=== PATIENT | female | born 1980 | race Caucasian/White ===

== ENCOUNTER 2018-06-30 10:41 | Emergency (ER) | payer MEDICAID, SELFPAY ==
[2018-06-30 11:11] VITALS: BP 121/50; PULSE 70; RESP 16; TEMP 36.7; O2SAT 99
--- NOTE | 2018-06-30 12:00 | W.ED.GENAD ---
Discharge Plan Disposition Patient Disposition: HOME Condition: Good Discharge Details Chief Complaint: Sorethroat Clinical Impression: Pharyngitis, Sinusitis Primary Care Provider: Janelle Baig ED Provider: Abdifatah Hawkins Home Meds and New Rx's Prescriptions: No Action multivitamin [Multi-Day] 1 EACH tablet 1 ea PO DAILY RF: 0 fluoxetine 20 MG capsule 20 mg PO DAILY Qty: 90 RF: 3 Buspirone HCl 5 MG tablet 5 mg PO Q8H PRN Qty: 15 RF: 0 Discharge Instructions Instructions: Pharyngitis (ED), Sinusitis (ED) Stand Alone Forms: Work Release Referrals: [facility] Emergency Dept. [Outside] - Return if symptoms worsen Discharge Data Discharge Date/Time-TO BE ENTERED AT DEPARTURE: 06/30/18 12:07 Medical Decision Making Apprised her of negative strep. Advised to take a couple days off while culture is pending. Note provided. Return to ED if symptoms worsen otherwise with pcp. Lab Data Lab results reviewed: Yes I reviewed the patient's lab results. Lab results narrative: negative strep. HPI General Mode of arrival: ambulatory. Date/Time Provider Initiated Documentation: 06/30/18 11:52. Limitations to Documentation: no limitations. Information obtained by: patient. History of Present Illness 37 year old F presents to the emergency department with the chief complaint of sore throat and bilateral ear pressure/pain, described as mild, Quality is described as aching, Patient started experiencing this day(s) and it has been constant. No relieving factors improve symptom(s), No exacerbating factors reported . Patient notes no other symptoms.. 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 Denies cough, cp, sob, or fever. Related Data Home Medications Medication Instructions Recorded Confirmed multivitamin [Multi-Day] 1 ea PO DAILY 11/17/12 06/30/18 fluoxetine 20 mg PO DAILY #90 tab-cap 02/14/18 06/30/18 Previous Rx's Medication Instructions Recorded fluoxetine 20 mg PO DAILY #90 tab-cap 02/14/18 Allergies Allergy/AdvReac Type Severity Reaction Status Date / Time amoxicillin Allergy Intermediate Skin Rash Unverified 06/30/18 11:14 General Stated Complaint: Sorethroat SANTINO: 4 Review of Systems Constitutional Denies headache(s) Eyes Reports system reviewed and no additional complaints, except as docu ENT Reports otalgia, Denies headache(s), Denies hearing loss, Reports sinus pressure and Reports sore throat Cardiovascular Reports system reviewed and no additional complaints, except as docu Respiratory Reports system reviewed and no additional complaints, except as docu Gastrointestinal Reports system reviewed and no additional complaints, except as docu Neurologic Denies headache(s) PFSH Family History Sister Brain tumor Social History Smoking/Tobacco Use Status: Current every day Surgical History Extraction of cataract (12/29/15) Exam Const General: cooperative, no acute distress and well groomed Orientation: alert, awake and oriented x3 HENMT Head: normal to inspection Ears: hearing grossly normal bilaterally, external ears normal and TM's normal bilaterally General nose exam: external nose normal Face and sinus: normal facial exam Mouth: oral mucosae normal, tongue normal, oropharynx normal and no drooling Teeth and gingiva: dentition normal Throat: posterior oropharynx normal Eyes General: appearance normal, both eyes and all related structures Neck Neck: normal visual inspection, full ROM and no lymphadenopathy Resp Effort & Inspection: normal respiratory effort Auscultation: clear to auscultation bilaterally Cardio Jugular venous pressure: no JVD Rate: regular rate Rhythm: regular rhythm Course Vital Signs Temperature 36.7 C 06/30/18 11:11 Pulse 70 06/30/18 11:11 Respiratory Rate 16 06/30/18 11:11 Blood Pressure 121/50 L 06/30/18 11:11 Pulse Oximetry 99 06/30/18 11:11 Temperature 36.7 C 06/30/18 11:11 Temperature Source Temporal Artery Scan 06/30/18 11:11 Pulse 70 06/30/18 11:11 Respiratory Rate 16 06/30/18 11:11 Respiratory Effort Non-Labored 06/30/18 11:13 Blood Pressure 121/50 L 06/30/18 11:11 Blood Pressure Position Sitting 06/30/18 11:11 Pulse Oximetry 99 06/30/18 11:11 Oxygen Delivery Method Room Air 06/30/18 11:11 Oxygen Flow Rate 0 06/30/18 11:11 Pain Level 8 06/30/18 11:11 Lab/Test Results Lab/Test Results: 06/30/18 11:16 Pharynx Streptococcus Screen (DAVID) - Pending POC Strep Test-ELIZABETH(Rapid) Start: 06/30/18 11:09 Freq: .Rapid Strep Test Status: Active Protocol: Document 06/30/18 11:15 SGL (Rec: 06/30/18 11:16 SGL [id number]) Strep test-ELIZABETH(Rapid)-POC POC-Strep test-ELIZABETH (Rapid) Negative POC-Strep test-ELIZABETH (Rapid) Negative
--- NOTE | 2018-06-30 12:03 | ED.GENADUL_ITS ---
Discharge Plan Disposition Patient Disposition: HOME Condition: Good Discharge Details Chief Complaint: Sorethroat Clinical Impression: Pharyngitis, Sinusitis Primary Care Provider: Janelle Baig ED Provider: Abdifatah Hawkins Home Meds and New Rx's Prescriptions: No Action multivitamin [Multi-Day] 1 EACH tablet 1 ea PO DAILY RF: 0 fluoxetine 20 MG capsule 20 mg PO DAILY Qty: 90 RF: 3 Buspirone HCl 5 MG tablet 5 mg PO Q8H PRN Qty: 15 RF: 0 Discharge Instructions Instructions: Pharyngitis (ED), Sinusitis (ED) Stand Alone Forms: Work Release Referrals: [facility] Emergency Dept. [Outside] - Return if symptoms worsen Discharge Data Discharge Date/Time-TO BE ENTERED AT DEPARTURE: 06/30/18 12:07 Medical Decision Making Apprised her of negative strep. Advised to take a couple days off while culture is pending. Note provided. Return to ED if symptoms worsen otherwise with pcp. Lab Data Lab results reviewed: Yes I reviewed the patient's lab results. Lab results narrative: negative strep. HPI General Mode of arrival: ambulatory . Date/Time Provider Initiated Documentation: 06/30/18 11:52 . Limitations to Documentation: no limitations . Information obtained by: patient . History of Present Illness 37 year old F presents to the emergency department with the chief complaint of sore throat and bilateral ear pressure/pain, described as mild, Quality is described as aching, Patient started experiencing this day(s) and it has been constant. No relieving factors improve symptom(s), No exacerbating factors reported . Patient notes no other symptoms.. 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 Denies cough, cp, sob, or fever. Related Data Home Medications Medication Instructions Recorded Confirmed multivitamin [Multi-Day] 1 ea PO DAILY 11/17/12 06/30/18 fluoxetine 20 mg PO DAILY #90 tab-cap 02/14/18 06/30/18 Previous Rx's Medication Instructions Recorded fluoxetine 20 mg PO DAILY #90 tab-cap 02/14/18 Allergies Allergy/AdvReac Type Severity Reaction Status Date / Time amoxicillin Allergy Intermediate Skin Rash Unverified 06/30/18 11:14 General Stated Complaint: Sorethroat SANTINO: 4 Review of Systems Constitutional Denies headache(s) Eyes Reports system reviewed and no additional complaints, except as docu ENT Reports otalgia, Denies headache(s), Denies hearing loss, Reports sinus pressure and Reports sore throat Cardiovascular Reports system reviewed and no additional complaints, except as docu Respiratory Reports system reviewed and no additional complaints, except as docu Gastrointestinal Reports system reviewed and no additional complaints, except as docu Neurologic Denies headache(s) PFSH Family History Sister Brain tumor Social History Smoking/Tobacco Use Status: Current every day Surgical History Extraction of cataract (12/29/15) Exam Const General: cooperative, no acute distress and well groomed Orientation: alert, awake and oriented x3 HENMT Head: normal to inspection Ears: hearing grossly normal bilaterally, external ears normal and TM's normal bilaterally General nose exam: external nose normal Face and sinus: normal facial exam Mouth: oral mucosae normal, tongue normal, oropharynx normal and no drooling Teeth and gingiva: dentition normal Throat: posterior oropharynx normal Eyes General: appearance normal, both eyes and all related structures Neck Neck: normal visual inspection, full ROM and no lymphadenopathy Resp Effort & Inspection: normal respiratory effort Auscultation: clear to auscultation bilaterally Cardio Jugular venous pressure: no JVD Rate: regular rate Rhythm: regular rhythm Course Vital Signs Temperature 36.7 C 06/30/18 11:11 Pulse 70 06/30/18 11:11 Respiratory Rate 16 06/30/18 11:11 Blood Pressure 121/50 L 06/30/18 11:11 Pulse Oximetry 99 06/30/18 11:11 Temperature 36.7 C 06/30/18 11:11 Temperature Source Temporal Artery Scan 06/30/18 11:11 Pulse 70 06/30/18 11:11 Respiratory Rate 16 06/30/18 11:11 Respiratory Effort Non-Labored 06/30/18 11:13 Blood Pressure 121/50 L 06/30/18 11:11 Blood Pressure Position Sitting 06/30/18 11:11 Pulse Oximetry 99 06/30/18 11:11 Oxygen Delivery Method Room Air 06/30/18 11:11 Oxygen Flow Rate 0 06/30/18 11:11 Pain Level 8 06/30/18 11:11 Lab/Test Results Lab/Test Results: 06/30/18 11:16 Pharynx Streptococcus Screen (DAVID) - Pending POC Strep Test-ELIZABETH(Rapid) Start: 06/30/18 11: 09 Freq: .Rapid Strep Test Status: Active Protocol: Document 06/30/18 11:15 SGL (Rec: 06/30/18 11:16 SGL [id number]) Strep test-ELIZABETH(Rapid)-POC POC-Strep test-ELIZABETH (Rapid) Negative POC-Strep test-ELIZABETH (Rapid) Negative
== END 2018-06-30 12:07 | disposition home or self-care (01) ==
LOC: ER 12:33
PROVIDERS: Emergency Provider Nurse Practitioner Family; PCP Family Medicine
DX: J02.9 Acute pharyngitis, unspecified (principal); J01.90 Acute sinusitis, unspecified; F17.210 Nicotine dependence, cigarettes, uncomplicated
CPT/HCPCS: 87880; 87081

== ENCOUNTER 2018-07-14 15:43 | Emergency (ER) | payer MEDICAID, SELFPAY ==
[2018-07-14 16:15] VITALS: BP 127/75; PULSE 74; RESP 16; TEMP 36.7; O2SAT 100
--- NOTE | 2018-07-14 17:07 | W.ED.GENAD ---
Discharge Plan Disposition Patient Disposition: HOME Condition: Good Discharge Details Chief Complaint: RespSymp Clinical Impression: Viral respiratory illness Primary Care Provider: Janelle Baig ED Provider: Raimundo Camp Home Meds and New Rx's Prescriptions: New benzonatate 200 mg capsule 200 mg PO TID PRN (Reason: cough) Qty: 30 RF: 0 Continue multivitamin [Multi-Day] 1 EACH tablet 1 ea PO DAILY RF: 0 fluoxetine 20 MG capsule 20 mg PO DAILY Qty: 90 RF: 3 Buspirone HCl 5 MG tablet 5 mg PO Q8H PRN Qty: 15 RF: 0 Discharge Instructions Instructions: Viral Syndrome (ED), Cold Symptoms (ED) Additional Instructions: Feel free to return the emergency department for any new or significant worsening of your symptoms otherwise take medications as prescribed and follow-up with your primary care provider if not improving over the next week. For nasal congestion it is recommended that you use an [id number] nasal decongestant. Stay well-hydrated and get plenty of rest during illness. Referrals: Janelle Baig MD, [place] [Primary Care Provider] - (As needed for reassessment or if not improving in the next week) Discharge Data Discharge Date/Time-TO BE ENTERED AT DEPARTURE: 07/14/18 17:17 Medical Decision Making Patient presenting to the emergency department for continued cough. She states that she has had a cold now for 2 weeks and has had some nasal congestion and lingering cough. She states that intermittently gets better and worse and seems to be worse at night and her biggest complaint is that she has not been able to sleep well due to coughing through the night. Physical exam is unremarkable except for mild tonsillary erythema otherwise no worrisome physical exam finding including patient having clear lung sounds in all mccurdy, no lymphadenopathy, patient well in appearance. I feel that patient still has post viral cough and just needs symptomatic medications at this point. Patient even denies fever chills I do not think that antibiotics are needed or warranted at this time. Patient was encouraged to use symptomatic medication as prescribed, which includes Tessalon Perles, and to follow-up with primary care if not improving over the next week. After discussion of diagnosis and plan of care patient has no further needs, questions, or concerns and states clear understanding to return to the emergency department for any worsening symptoms. HPI General Mode of arrival: ambulatory. Date/Time Provider Initiated Documentation: 07/14/18 16:26. Limitations to Documentation: no limitations. Information obtained by: patient and RN notes reviewed. History of Present Illness 37 year old F presents to the emergency department with the chief complaint of Cough, described as moderate, with intensity rated at 6. Quality is described as aching, and is localized to the chest. Patient started experiencing this week(s) (2) and it has been constant. No relieving factors improve symptom(s), No exacerbating factors reported . Patient did receive the following treatments prior to arrival, other (Robitussin DM) Related Data Home Medications Medication Instructions Recorded Confirmed multivitamin [Multi-Day] 1 ea PO DAILY 11/17/12 07/14/18 fluoxetine 20 mg PO DAILY #90 tab-cap 02/14/18 07/14/18 benzonatate 200 mg PO TID PRN #30 cap 07/14/18 Previous Rx's Medication Instructions Recorded fluoxetine 20 mg PO DAILY #90 tab-cap 02/14/18 benzonatate 200 mg PO TID PRN #30 cap 07/14/18 Allergies Allergy/AdvReac Type Severity Reaction Status Date / Time amoxicillin Allergy Intermediate Skin Rash Verified 07/14/18 16:20 General Stated Complaint: RespSymp SANTINO: 3 Review of Systems Constitutional Denies chills, Reports difficulty sleeping (Due to coughing), Denies fatigue, Denies fever(s) and Denies malaise ENT Denies otalgia, Reports nasal congestion, Reports sinus pressure and Reports sore throat Cardiovascular Denies dyspnea Respiratory Reports cough, Denies dyspnea, Denies stridor and Denies wheezing Musculoskeletal Denies joint swelling Integumentary/Breasts Denies rash Endocrine Denies fatigue Allergic/Immunologic Denies wheezing PFSH Family History Sister Brain tumor Social History Smoking/Tobacco Use Status: Current every day Surgical History Extraction of cataract (12/29/15) Exam Const General: cooperative, comfortable and no acute distress Orientation: alert, awake and oriented x3 HENMT Head: normal to inspection Ears: hearing grossly normal bilaterally and TM's normal bilaterally Face and sinus: normal facial exam Mouth: oral mucosae normal Throat: abnormal tonsil bilaterally erythema (mild) Eyes General: appearance normal, both eyes and all related structures Conjunctivae: conjunctivae normal Sclera: sclerae normal Neck Neck: normal visual inspection, full ROM, no lymphadenopathy, meningismus present and no JVD Resp Effort & Inspection: normal respiratory effort, able to speak in complete sentences, no audible wheezes, cough Quality of cough: actively coughing and not labored Auscultation: clear to auscultation bilaterally Cardio Rate: regular rate Rhythm: regular rhythm Heart Sounds: S1 normal and S2 normal Skin General skin exam: no rashes or lesions noted and dry skin Rashes: no rashes Neuro General: alert, awake, oriented x3 and gait normal Course Vital Signs Temperature 36.7 C 07/14/18 16:15 Pulse 74 07/14/18 16:15 Respiratory Rate 16 07/14/18 16:15 Blood Pressure 127/75 07/14/18 16:15 Pulse Oximetry 100 07/14/18 16:15 Temperature 36.7 C 07/14/18 16:15 Temperature Source Skin 07/14/18 16:15 Pulse 74 07/14/18 16:15 Respiratory Rate 16 07/14/18 16:15 Blood Pressure 127/75 07/14/18 16:15 Blood Pressure Position Sitting 07/14/18 16:15 Pulse Oximetry 100 07/14/18 16:15 Oxygen Delivery Method Room Air 07/14/18 16:15 Oxygen Flow Rate 0 07/14/18 16:15 Pain Level 0 07/14/18 16:15
--- NOTE | 2018-07-14 17:12 | ED.GENADUL_ITS ---
Discharge Plan Disposition Patient Disposition: HOME Condition: Good Discharge Details Chief Complaint: RespSymp Clinical Impression: Viral respiratory illness Primary Care Provider: Janelle Baig ED Provider: Raimundo Camp Home Meds and New Rx's Prescriptions: New benzonatate 200 mg capsule 200 mg PO TID PRN (Reason: cough) Qty: 30 RF: 0 Continue multivitamin [Multi-Day] 1 EACH tablet 1 ea PO DAILY RF: 0 fluoxetine 20 MG capsule 20 mg PO DAILY Qty: 90 RF: 3 Buspirone HCl 5 MG tablet 5 mg PO Q8H PRN Qty: 15 RF: 0 Discharge Instructions Instructions: Viral Syndrome (ED), Cold Symptoms (ED) Additional Instructions: Feel free to return the emergency department for any new or significant worsening of your symptoms otherwise take medications as prescribed and follow- up with your primary care provider if not improving over the next week. For nasal congestion it is recommended that you use an [id number] nasal decongestant. Stay well-hydrated and get plenty of rest during illness. Referrals: Janelle aBig MD, [place] [Primary Care Provider] - (As needed for reassessment or if not improving in the next week) Discharge Data Discharge Date/Time-TO BE ENTERED AT DEPARTURE: 07/14/18 17:17 Medical Decision Making Patient presenting to the emergency department for continued cough. She states that she has had a cold now for 2 weeks and has had some nasal congestion and lingering cough. She states that intermittently gets better and worse and seems to be worse at night and her biggest complaint is that she has not been able to sleep well due to coughing through the night. Physical exam is unremarkable except for mild tonsillary erythema otherwise no worrisome physical exam finding including patient having clear lung sounds in all mccurdy, no lymphadenopathy, patient well in appearance. I feel that patient still has post viral cough and just needs symptomatic medications at this point. Patient even denies fever chills I do not think that antibiotics are needed or warranted at this time. Patient was encouraged to use symptomatic medication as prescribed, which includes Tessalon Perles, and to follow-up with primary care if not improving over the next week. After discussion of diagnosis and plan of care patient has no further needs, questions, or concerns and states clear understanding to return to the emergency department for any worsening symptoms. HPI General Mode of arrival: ambulatory . Date/Time Provider Initiated Documentation: 07/14/18 16:26 . Limitations to Documentation: no limitations . Information obtained by: patient and RN notes reviewed . History of Present Illness 37 year old F presents to the emergency department with the chief complaint of Cough, described as moderate, with intensity rated at 6. Quality is described as aching, and is localized to the chest. Patient started experiencing this week(s) (2) and it has been constant. No relieving factors improve symptom(s), No exacerbating factors reported . Patient did receive the following treatments prior to arrival, other (Robitussin DM) Related Data Home Medications Medication Instructions Recorded Confirmed multivitamin [Multi-Day] 1 ea PO DAILY 11/17/12 07/14/18 fluoxetine 20 mg PO DAILY #90 tab-cap 02/14/18 07/14/18 benzonatate 200 mg PO TID PRN #30 cap 07/14/18 Previous Rx's Medication Instructions Recorded fluoxetine 20 mg PO DAILY #90 tab-cap 02/14/18 benzonatate 200 mg PO TID PRN #30 cap 07/14/18 Allergies Allergy/AdvReac Type Severity Reaction Status Date / Time amoxicillin Allergy Intermediate Skin Rash Verified 07/14/18 16:20 General Stated Complaint: RespSymp SANTINO: 3 Review of Systems Constitutional Denies chills, Reports difficulty sleeping (Due to coughing), Denies fatigue, Denies fever(s) and Denies malaise ENT Denies otalgia, Reports nasal congestion, Reports sinus pressure and Reports sore throat Cardiovascular Denies dyspnea Respiratory Reports cough, Denies dyspnea, Denies stridor and Denies wheezing Musculoskeletal Denies joint swelling Integumentary/Breasts Denies rash Endocrine Denies fatigue Allergic/Immunologic Denies wheezing PFSH Family History Sister Brain tumor Social History Smoking/Tobacco Use Status: Current every day Surgical History Extraction of cataract (12/29/15) Exam Const General: cooperative, comfortable and no acute distress Orientation: alert, awake and oriented x3 HENMT Head: normal to inspection Ears: hearing grossly normal bilaterally and TM's normal bilaterally Face and sinus: normal facial exam Mouth: oral mucosae normal Throat: abnormal tonsil bilaterally erythema (mild) Eyes General: appearance normal, both eyes and all related structures Conjunctivae: conjunctivae normal Sclera: sclerae normal Neck Neck: normal visual inspection, full ROM, no lymphadenopathy, meningismus present and no JVD Resp Effort & Inspection: normal respiratory effort, able to speak in complete sentences, no audible wheezes, cough Quality of cough: actively coughing and not labored Auscultation: clear to auscultation bilaterally Cardio Rate: regular rate Rhythm: regular rhythm Heart Sounds: S1 normal and S2 normal Skin General skin exam: no rashes or lesions noted and dry skin Rashes: no rashes Neuro General: alert, awake, oriented x3 and gait normal Course Vital Signs Temperature 36.7 C 07/14/18 16:15 Pulse 74 07/14/18 16:15 Respiratory Rate 16 07/14/18 16:15 Blood Pressure 127/75 07/14/18 16:15 Pulse Oximetry 100 07/14/18 16:15 Temperature 36.7 C 07/14/18 16:15 Temperature Source Skin 07/14/18 16:15 Pulse 74 07/14/18 16:15 Respiratory Rate 16 07/14/18 16:15 Blood Pressure 127/75 07/14/18 16:15 Blood Pressure Position Sitting 07/14/18 16:15 Pulse Oximetry 100 07/14/18 16:15 Oxygen Delivery Method Room Air 07/14/18 16:15 Oxygen Flow Rate 0 07/14/18 16:15 Pain Level 0 07/14/18 16:15
== END 2018-07-14 17:17 | disposition home or self-care (01) ==
PROVIDERS: Emergency Provider Nurse Practitioner Family; PCP Family Medicine
DX: J06.9 Acute upper respiratory infection, unspecified (principal); F17.210 Nicotine dependence, cigarettes, uncomplicated
CPT/HCPCS: 99283

== ENCOUNTER 2018-08-01 06:05 | Day surgery (SDC) | payer MEDICAID, SELFPAY ==
[2018-08-01 06:23] VITALS: BP 109/64; PULSE 80; RESP 16; TEMP 36.9; O2SAT 97
[2018-08-01] MEDS: Lactated Ringers 1,000 ML 80 ML IV (06:58)
--- NOTE | 2018-08-01 08:37 | PDOC.DSDIS_ITS ---
Discharge Plan Disposition Patient Disposition: HOME Condition: Good Discharge Details Reason For Visit: BILAT CTS Attending Provider: Zia Silva Primary Care Provider: Janelle Baig Home Meds and New Rx's Prescriptions: New hydrocodone-acetaminophen 5-325 mg tablet 1 tab PO Q6H PRN (Reason: pain) Qty: 7 RF: 0 Continue multivitamin [Multi-Day] 1 EACH tablet 1 ea PO DAILY RF: 0 fluoxetine 20 MG capsule 20 mg PO DAILY Qty: 90 RF: 3 Buspirone HCl 5 MG tablet 5 mg PO Q8H PRN Qty: 15 RF: 0 benzonatate 200 mg capsule 200 mg PO TID PRN (Reason: cough) Qty: 30 RF: 0 Discharge Instructions Additional Instructions: Elevate R hand above heart level as much as possible overnite tonite. Wiggle fingers R hand 10 times/hour when awake to prevent swelling. Your fingers R hand may stay numb for 24 hours due to nerve block I put in to decrease post-op pain. Remove dressings AND splint and begin to move R wrist in 48 hours. May shower or bathe and get incision wet after you remove dressings in 48 hours. Leave incision uncovered when it is dry and sealed. Use R hand as much as discomfort allows. Follow up in 's office in 10-14 days. Stand Alone Forms: [facility] Post op Instructions, Luis Rodrigues ([facility]) Referrals: Zia Silva MD [ [facility] STAFF PHYSICIAN] - (f/u in 10-14 days.) Equipment/Supplies: Splint Activity:: Activity as Tolerated Remove Dressings/Wound Care:: 48 hours Shower/Bathe:: 48 hours Diet:: As Tolerated Discharge Orders Discharge Orders: Discharge Order (Routine); Ordered 08/01/18 Ordered By: Zia Silva DS: Diagnosis Discharge Diagnosis (1) Carpal tunnel syndrome on both sides: Start date: 08/01/18 Start time: 08:36 Status: Chronic
[2018-08-01 09:15] VITALS: BP 111/45; PULSE 70; RESP 16; TEMP 36.8; O2SAT 94
--- NOTE | 2018-08-01 17:26 | ROE_ITS ---
DATE OF PROCEDURE: August 01, 2018 PREOPERATIVE DIAGNOSIS: Carpal tunnel syndrome, right. POSTOPERATIVE DIAGNOSIS: Same. PROCEDURE: Endoscopic carpal tunnel release on the right. ANESTHESIA: IV Regional. SURGEON: Zia Silva M.D. INDICATIONS: This is a 37-year-old white female with a five to six month history of pain and numbnes s in both hands in the median nerve distribution. The right is more symptomatic than the left and sh dorothy is a right hand dominant individual. She has not gotten any relief from night splinting and contin ues to experience pain when using her hands during the daytime. Because of failure of conservative t reatment to control her symptoms, carpal tunnel release was recommended. The patient wished to under go the endoscopic technique of carpal tunnel release. The risks and complications of the procedure h ave been explained to the patient in detail preoperatively. The patient wishes to have the right kisha e done first on 08/01/18 and then proceed to have the left side fixed on 08/13/18. PROCEDURE: The patient was taken to the operating room on 08/01/18. She was placed supine on the op erating table and an IV regional anesthetic was administered to the right upper extremity. Once good anesthesia was obtained, the right hand, wrist and forearm were prepped and draped free in the usual sterile fashion. A transverse incision was made in line with the proximal flexion crease of the wri st beginning at the flexor carpi radialis tendon and extending to the flexor carpi ulnaris tendon. T he incision was carried down through the subcu to the fascia. The palmaris longus tendon was present and was retracted radially. A distally-based fascial flap was created to gain access to the carpal canal. A synovial reflector was then used to free up soft tissue attachments to the undersurface of the volar carpal ligament. The Julia endoscope blade device was then advanced to the distal edge of t he volar carpal ligament. Care was taken to position the endoscope against the hook of the hamate. When the distal edge of the volar carpal ligament was clearly visualized the trigger was depressed, e levating the blade, and then the elevator blade was brought out proximally through the incision, horowitz secting the volar carpal ligament. Littler scissors were then used to perform a subcutaneous fasciot adan in a proximal direction from the incision about two inches in length. The wound was irrigated wi th saline solution. A median nerve block was performed with 0.5% Marcaine with an epinephrine soluti on and the margins of the incision were infiltrated with 0.5% Marcaine with an epinephrine solution. The skin edges were approximated with two horizontal mattress sutures of #4-0 nylon suture material. Sterile dressings were applied of Xeroform gauze, sterile gauze 4x4's, wrapped with Kerlix bandage. It was then wrapped with an Amol bandage and the right wrist was placed in a commercial cock-up wris t splint. The tourniquet was released. There was no breakthrough bleeding. The patient was dischar amy to the Day Surgery Unit in good condition. The patient was discharged home from the Day Surgery Unit when fully recovered from her IV regional a nesthesia. She was given instructions to elevate her right hand as much as possible overnight tonigh t. She is to wiggle her fingers ten times an hour to prevent swelling. In 48 hours she is to remove the dressings and splint and begin to move her right wrist. She may then shower or bathe and get he r incision wet. She can leave the incision uncovered when it's dry and sealed. She is advised that her fingers may stay numb for 24 hours due to the nerve block I put in. She was given a prescriptio n for breakthrough pain of Hydrocodone with APAP 5/325 one tablet every six hours as needed. She michael l take this for pain that is not relieved with Tylenol or ibuprofen. She will follow-up in my office in 10 to 14 days.
== END 2018-08-01 09:12 | disposition home or self-care (01) ==
PROVIDERS: PCP Family Medicine; Visit Provider Orthopaedic Surgery
PROC: 01N54ZZ Release Median Nerve, Percutaneous Endoscopic Approach (ICD-10-PCS; CPT 29848; principal; 2018-08-01 07:30)
DX: G56.01 Carpal tunnel syndrome, right upper limb (principal)
CPT/HCPCS: 29848; J1885; J2250; L3908

== ENCOUNTER 2018-08-13 11:18 | Day surgery (SDC) | payer MEDICAID, SELFPAY ==
[2018-08-13 11:35] VITALS: BP 111/69; PULSE 82; RESP 18; TEMP 37.2; O2SAT 96
[2018-08-13] MEDS: Lactated Ringers 1,000 ML 80 ML IV (12:12)
[2018-08-13] MEDS: Normal Saline Flush 10 ML SYR IV (12:12)
--- NOTE | 2018-08-13 13:29 | PDOC.DSDIS_ITS ---
Discharge Plan Disposition Patient Disposition: HOME Condition: Good Discharge Details Attending Provider: Zia Silva Primary Care Provider: Janelle Baig Home Meds and New Rx's Prescriptions: New hydrocodone-acetaminophen 5-325 mg tablet 1 tab PO Q6H PRN (Reason: pain) Qty: 7 RF: 0 Continue multivitamin [Multi-Day] 1 EACH tablet 1 ea PO DAILY RF: 0 fluoxetine 20 MG capsule 20 mg PO DAILY Qty: 90 RF: 3 Buspirone HCl 5 MG tablet 5 mg PO Q8H PRN Qty: 15 RF: 0 Discharge Instructions Additional Instructions: Elevate L hand above heart level as much as possible overnite tonite. Wiggle your fingers L hand 10 times/hour when awake to prevent swelling. Your fingers L may stay numb for 24 hours due to nerve block I put in to decrease post-op pain. Remove splint AND dressings after 48 hours and begin to move L wrist. May shower or bathe and get incision wet after you remove dressings. Leave incision uncovered when it is dry and sealed. Use L hand as much as your discomfort allows. Follow up in 's office in 10-14 days. Stand Alone Forms: DSU Post op Instructions, Luis Rodrigues (DSU) Referrals: Zia Silva MD [ [facility] STAFF PHYSICIAN] - (f/u in 10-14 days.) Equipment/Supplies: Brace Activity:: Activity as Tolerated Remove Dressings/Wound Care:: 48 hours Shower/Bathe:: 48 hours Diet:: As Tolerated Discharge Orders Discharge Orders: Discharge Order (Routine); Ordered 08/13/18 Ordered By: Zia Silva DS: Diagnosis Discharge Diagnosis (1) Carpal tunnel syndrome on both sides: Status: Chronic
[2018-08-13 13:53] VITALS: BP 96/49; PULSE 76; RESP 16; TEMP 36.9; O2SAT 97
--- NOTE | 2018-08-14 07:27 | ROE_ITS ---
REPORT OF OPERATIVE PROCEDURE DATE OF PROCEDURE August 13, 2018 PREOPERATIVE DIAGNOSIS Carpal tunnel syndrome on the left. POSTOPERATIVE DIAGNOSIS Carpal tunnel syndrome on the left. PROCEDURE Endoscopic carpal tunnel release on the left. ANESTHESIA IV regional, Davy Calero CRNA SURGEON Zia Silva M.D. INDICATIONS FOR PROCEDURE This is a 37-year-old white female with long standing carpal tunnel syndrome bilaterally. Two weeks a go, she underwent an endoscopic carpal tunnel release on the right with an excellent result. She want s to proceed with an endoscopic carpal tunnel release on the left at this time. The risks and complic ations of the procedure have been explained to her in detail preoperatively. DESCRIPTION OF PROCEDURE The patient was taken to the Operating Room on 08/13/2018. She was placed supine on the operating ta ble and an IV regional anesthetic was administered to the left upper extremity. Once good anesthesia was obtained, the left hand, wrist, and forearm were prepped and draped free in the usual sterile fa shion. A transverse incision was made in line with the proximal flexion crease of the wrist. The incision be tammy at the flexor carpi radialis and extended to the flexor carpi ulnaris tendon. The palmaris longu s tendon was present, it was retracted radially. A distally-based fascial flap was then created to ga in access to the carpal canal. The Julia endoscope blade device was then inserted in the carpal canal after creating space for the endoscope with the synovial reflector and a series of obturators. The en doscope was placed against the ulnar side of the canal and was advanced until the distal edge of the volar carpal ligament was visualized clearly. At this point, the trigger was depressed, elevating the blade and the elevated blade was brought out proximally through the incision transecting the volar c arpal ligament. Littler scissors were then used to perform a subcutaneous fasciotomy in the proximal direction for a couple of inches. The endoscope was placed back in the carpal canal and the median ne rve was seen to fall into the gap created by the transected volar carpal ligament. The wound was irri gated with saline solution. The wound margins were infiltrated with 0.5% Marcaine with epinephrine so lution, and a median nerve block was performed with 0.5% Marcaine with epinephrine solution. The ski n edges were approximated with 2 horizontal mattress sutures of #4-0 Nylon suture material. The woun d was dressed with Xeroform gauze, sterile gauze, 4x4s, wrapped with a 4-inch Kerlix bandage and then wrapped with an Amol bandage. She was placed in a commercial cock-up wrist splint. The patient's IV regional anesthesia was reversed without complications. She was discharged to the recovery room in g ood condition. The patient was later discharged home from the Day Surgery Unit when fully recovered from her IV jenny onal anesthesia. She was given instructions to elevate her left hand above heart level as much as po ssible overnight tonight. She is to keep her dressings and splint intact and dry for 48 hours. After 48 hours, she is to remove her splint and dressings and begin to move her left wrist. She may use he r left hand as much as discomfort allows. She is encouraged to wear move the fingers 10 times an hour to prevent stiffness and swelling. After 48 hours, she may shower and get her incision wet. She can leave the incision uncovered when it is dry and sealed. She can use her left hand as much as discom fort allows. She will take ibuprofen and Tylenol for mild pain and she is given #7 hydrocodone with apap 5/325, 1 q. 6 hours p.r.n. for breakthrough pain. She will follow up in Dr. Silva's office in 1 0 to 14 days.
== END 2018-08-13 14:36 | disposition home or self-care (01) ==
PROVIDERS: PCP Family Medicine; Visit Provider Orthopaedic Surgery
PROC: 01N54ZZ Release Median Nerve, Percutaneous Endoscopic Approach (ICD-10-PCS; CPT 29848; principal; 2018-08-13 13:00)
DX: G56.02 Carpal tunnel syndrome, left upper limb (principal)
CPT/HCPCS: 29848; J0690; J1885; J2250; L3908

== ENCOUNTER 2019-07-30 11:08 | Outpatient (CLI) | payer OTHER, SELFPAY ==
[2019-07-30 13:09] LABS: TSH (W/Ref FT4) 1.74 uIU/mL (0.36-3.74)
== END 2019-07-30 11:28 ==
PROVIDERS: PCP Family Medicine; Visit Provider Nurse Practitioner Family
DX: N93.9 Abnormal uterine and vaginal bleeding, unspecified (principal)
CPT/HCPCS: 36415; 84443

== ENCOUNTER 2019-08-03 01:40 | Outpatient (CLI) | payer OTHER, SELFPAY ==
--- NOTE | 2019-08-03 12:44 | DI.US_ITS ---
EXAM: US PELVIS AND TRANSVAGINAL CLINICAL HISTORY: abnormal vaginal bleeding, N93.9 TECHNIQUE: Ultrasound performed using standard protocol. Transabdominal and transvaginal exams wer e performed. COMPARISON: No exams were available for comparison FINDINGS: The uterus measures 7.3 x 4.6 x 5.4 cm. No fibroids are seen. The endometrial stripe measures 13 mi llimeters in thickness. A small cystic area is seen within the endometrium. No focal polyp is visual ized. There is a 2 centimeter dominant follicle of the left ovary. Small amount of fluid is seen ad jacent to the fundus of the uterus. There is no evidence of ovarian torsion. The kidneys are unrema rkable. IMPRESSION: Mildly thickened endometrium with a small cystic area. Remainder of the exam is within normal limits .
== END 2019-08-03 02:00 ==
PROVIDERS: PCP Family Medicine; Visit Provider Nurse Practitioner Family
DX: N93.9 Abnormal uterine and vaginal bleeding, unspecified (principal); R93.89 Abnormal findings on diagnostic imaging of other specified body structures
CPT/HCPCS: 76830; 76856

== ENCOUNTER 2019-08-18 16:06 | Outpatient (REF) | payer OTHER, SELFPAY ==
--- NOTE | 2019-08-18 15:00 | ENDOMET_PTH ---
PATIENT: Stefano Felton LOC: EDIN U#:[id number] AGE/SX: 38/F ROOM: RE08/18/[address]: Jackelyn Bah : 1980 BED: DIS: 08/18/2019 SPEC #: [id number] RECD: 08/18/19 17:52 STATUS: BRIT RESarah #: [id number] DANA: 08/18/19 15:[address]: Jackelyn Bah DEPT: Surgical Specimen RECD BY: Bee Cali ENTERED: 08/18/19 17:52 SP TYPE: Endomet OTHR DR: Janelle Baig MD, DC Tissues: 1 - ENDOMETRIUM BX/CURRETTE Procedures: GROSS AND MICRO LEVEL 4 Comments: [id number]
== END 2019-08-18 16:26 ==
LOC: LBN 16:06
PROVIDERS: PCP Family Medicine; Visit Provider Obstetrics & Gynecology Gynecology
DX: N85.8 Other specified noninflammatory disorders of uterus (principal); N93.8 Other specified abnormal uterine and vaginal bleeding
CPT/HCPCS: 88305

== ENCOUNTER 2019-08-25 13:59 | Outpatient (REF) | payer OTHER, SELFPAY ==
--- NOTE | 2019-08-25 13:30 | PAPFT_PTH ---
PATIENT: Stefano Felton LOC: EDIN U#:[id number] AGE/SX: 38/F ROOM: RE08/25/[address]: BLAIR Sauceda : 1980 BED: DIS: 08/25/2019 SPEC #: [id number] RECD: 08/25/19 18:11 STATUS: SHAIAmy REQ #: [id number] DANA: 08/25/19 13:[address]: Monserrat Espinoza DEPT: [facility] Cytology RECD BY: Bee Cali ENTERED: 08/25/19 18:15 SP TYPE: PAPFT [place] DR: Janelle Baig MD, DC Tissues: 1 - CX/ENDOCX FOR PAP SMEARS Procedures: PAP THIN PREP/UVM Screening HPV DNA PROBE Comments: [id number]
[2019-08-26 15:07] LABS: Chlamydia Result Negative (Negative)
[2019-08-26 15:47] LABS: GC Result Negative (Negative)
== END 2019-08-25 14:19 ==
LOC: LBN 13:59
PROVIDERS: PCP Family Medicine; Visit Provider Nurse Practitioner Family
DX: Z11.3 Encounter for screening for infections with a predominantly sexual mode of transmission (principal); Z12.4 Encounter for screening for malignant neoplasm of cervix
CPT/HCPCS: 87491; 87591; 88142; 87624

== ENCOUNTER 2020-07-18 11:26 | Emergency (ER) | payer MEDICAID, SELFPAY ==
[2020-07-18 11:29] VITALS: BP 154/61; PULSE 78; RESP 20; TEMP 36; O2SAT 99
--- NOTE | 2020-07-18 12:52 | W.ED.GENAD ---
Discharge Plan Disposition Patient Disposition: HOME Condition: Stable Discharge Details Clinical Impression: Plantar wart of right foot Primary Care Provider: Gayathri Gracia ED Provider: Sravanthi Oakes Home Meds and New Rx's Prescriptions: New clindamycin HCl 300 mg capsule 300 mg PO BID 7 Days Qty: 14 RF: 0 No Action Mirena 20 mcg/24 hours (5 yrs) 52 mg intrauterine device 1 device IY ONCE RF: 0 multivitamin [Multi-Day] 1 EACH tablet 1 ea PO DAILY RF: 0 ibuprofen [Advil] 200 mg Tablet 600 mg PO PRN PRNRF: 0 Discharge Instructions Instructions: Plantar Wart (ED) Additional Instructions: Follow up with primary care provider in 3-5 days. Return to ED sooner if any worsening or concerns. Increase oral fluids. Please take Tylenol or Ibuprofen with food every 4-6 hours as needed for pain and swelling. Take antibiotic as directed. You are placed on a follow-up list with care management for podiatry with Dr. Alexandra. Referrals: Grover Schaefer DPM [[facility] STAFF PHYSICIAN] - (Plantar wart) PODIATRY,EMMANUEL [OTHER] - Discharge Data Discharge Date/Time-TO BE ENTERED AT DEPARTURE: 07/18/20 13:07 Medical Decision Making 39-year-old female presents to the ED with chief complaint of right plantar foot pain. She has a known plantar wart which she has been getting treated with freezing treatments every 2 weeks with her PCP. She reports increased pain, redness, swelling and is concerned for infection. On initial exam she does have some warmth and erythema noted surrounding the plantar wart. Patient has been followed by PCP and referred to general surgery who she reports stated they do not treat plantar warts. Will give cephalexin for possible surrounding cellulitis. Refer to podiatry for further care and follow-up. HPI General Mode of arrival: ambulatory. Date/Time Provider Initiated Documentation: 07/18/20 12:01. Limitations to Documentation: no limitations. Information obtained by: patient. HPI Narrative: 39-year-old female presents to the ED with chief complaint of right plantar foot pain. She has a known plantar wart which she has been getting treated with freezing treatments every 2 weeks with her PCP. She reports increased pain, redness, swelling and is concerned for infection. On initial exam she does have some warmth and erythema noted surrounding the plantar wart. Related Data Home Medications Medication Instructions Recorded Confirmed multivitamin [Multi-Day] 1 ea PO DAILY 11/17/12 07/18/20 levonorgestrel 20 mcg/24 hours (5 1 device IY ONCE 08/25/19 07/18/20 yrs) 52 mg intrauterine device clindamycin HCl 300 mg PO BID 7 Days #14 cap 07/18/20 ibuprofen [Advil] 600 mg PO PRN PRN 07/18/20 07/18/20 Previous Rx's Medication Instructions Recorded clindamycin HCl 300 mg PO BID 7 Days #14 cap 07/18/20 Allergies Allergy/AdvReac Type Severity Reaction Status Date / Time amoxicillin Allergy Intermediate Skin Rash Verified 07/08/20 10:02 General Stated Complaint: Cellulitis SANTINO: 5 Review of Systems All systems reviewed & are unremarkable except as noted in HPI and below Integumentary/Breasts Skin/Breast: Reports skin pain and Reports wounds [facility] Medical History Abnormal uterine bleeding (AUB) 07/2019. Nl TSH. EMBx: benign. Rx with Mirena IUD placed 08/25/19. Carpal tunnel syndrome on both sides Surgical History Hx of cataract surgery S/P carpal tunnel release (~08/01/18) DR. CRISOSTOMO (R) Family History Sister , age 9 Brain tumor age 9 yrs Mother No problems noted. Father No problems noted. Brother No problems noted. Son No problems noted. Daughter No problems noted. Maternal Grandfather , age 76 No problems noted. Paternal Grandfather , age 80 No problems noted. Maternal Grandmother No problems noted. Paternal Grandmother No problems noted. Social History Smoking/Tobacco Use Status: Current-Occasional Tobacco Type: cigarettes Smoking risk assessment performed?: Yes Alcohol Intake: never Drug use: Never Substance use type: does not use Household members: spouse and children Housing: house Pets and animals: Yes Pets and animals: dog(s) Sexually active: Yes Do you think of yourself as: straight/heterosexual Current gender identity: decline to answer What is your relationship status?: How often do you talk on the phone with friends or family?: three or more times per week How often do you get together with friends or relatives?: twice per week How often do you attend nondenominational or church services?: decline to answer Do you belong to any clubs or organized social groups?: decline to answer Panel score (0-1 are the most socially isolated patients): 2 What type of physical activity do you participate in: decline to answer Duration: decline to answer Frequency: decline to answer Any/Alevism: No preference Special any needs: No Seatbelt use: always Drive intox or ride w/intox pick up driver: No Do you feel safe at home: Yes Do you feel safe in your relationship?: Yes Female Reproductive History Menstrual control method: permanent sterilization (Has IUD as well for cycle control) History History 2 Para 2 Hx # Term Pregnancies Multiple births Hx # Pregnancies Ectopic pregnancies AB induced Hx Number of Living Children AB spontaneous Exam Extrem Ankle/foot/toe images: 1. Plantar wart 2. Surrounding erythema and warmth Course Vital Signs Vital signs: Vital Signs Temperature 36 C L 07/18/20 11:29 Pulse 78 07/18/20 11:29 Respiratory Rate 20 07/18/20 11:29 Blood Pressure 154/61 H 07/18/20 11:29 Pulse Oximetry 99 07/18/20 11:29 Temperature 36 C L 07/18/20 11:29 Temperature Source Skin 07/18/20 11:29 Pulse 78 07/18/20 11:29 Respiratory Rate 20 07/18/20 11:29 Respiratory Effort Non-Labored 07/18/20 11:34 Blood Pressure 154/61 H 07/18/20 11:29 Blood Pressure Position Sitting 07/18/20 11:29 Pulse Oximetry 99 07/18/20 11:29 Oxygen Delivery Method Room Air 07/18/20 11:29 Oxygen Flow Rate 0 07/18/20 11:29 Pain Level 5 07/18/20 11:29 Comment 07/18/20 11:29
--- NOTE | 2020-07-18 18:19 | NUR.NOTE ---
Referral faxed to Podiatry Dr. [phone] Note:
== END 2020-07-18 13:07 | disposition home or self-care (01) ==
PROVIDERS: Emergency Provider Registered Nurse Emergency; PCP Nurse Practitioner Family
DX: B07.0 Plantar wart (principal); L53.9 Erythematous condition, unspecified
CPT/HCPCS: 99283

== ENCOUNTER 2020-08-15 14:33 | Outpatient (REF) | payer MEDICAID, SELFPAY ==
[2020-08-15 15:12] LABS: Abs Immature Grans 0.02 10^3/uL (0.0-0.06); Absolute Basophil Count 0.03 10^3/uL (0.0-0.2); Absolute Eosinophil Count 0.14 10^3/uL (0.0-0.7); Absolute Lymphocyte Count 2.69 10^3/uL (1.2-3.4); Absolute Monocyte Count 0.52 10^3/uL (0.1-0.8); Absolute Neutrophil Count 5.66 10^3/uL (1.2-6.7); Basophils % 0.3; Eosinophils % 1.5; HGB 13.7 g/dL (11.2-15.7); Immature Grans % 0.2; Lymphocytes % 29.7; MCH 30.6 pg (27.0-33.0); MCHC 31.9 % (32.0-36.0); MCV 96.2 fL (80-95); MPV 10.7 fL (8.0-11.0); Monocytes % 5.7; Neutrophils % 62.6; Nucleated RBC 0 %; Platelet Count 272 10^3/uL (130-400); RBC 4.47 10^6/uL (3.93-5.22); RDW 12.5 % (11.7-14.6); RDW-SD 44.7 fL; WBC 9.06 10^3/uL (4.4-10.8)
[2020-08-15 15:21] LABS: C-Reactive Protein < 0.05 mg/dL (0.0-0.3)
== END 2020-08-15 14:53 ==
LOC: LBN 14:33
PROVIDERS: PCP Nurse Practitioner Family; Visit Provider Surgery
DX: B07.0 Plantar wart (principal)
CPT/HCPCS: 85025; 86140

== ENCOUNTER 2020-11-08 10:18 | Outpatient (REF) | payer MEDICAID, SELFPAY ==
--- NOTE | 2020-11-08 09:45 | PAPFT_PTH ---
PATIENT: Stefano Felton LOC: N U#:[id number] AGE/SX: 39/F ROOM: RE11/08/[address]: BLAIR Sauceda : 1980 BED: DIS: 11/08/2020 SPEC #: [id number] RECD: 11/08/20 13:08 STATUS: BRIT LUNA #: [id number] DANA: 11/08/20 09:[address]: Monserrat Espinoza DEPT: [facility] Cytology RECD BY: Bee Cali ENTERED: 11/08/20 13:09 SP TYPE: PAPFT OTHR DR: BLAIR Chi Tissues: 1 - CX/ENDOCX FOR PAP SMEARS Procedures: PAP THIN PREP/UVM Screening HPV DNA PROBE Comments: [id number]
== END 2020-11-08 10:19 | disposition home or self-care (01) ==
LOC: LBN 10:18
PROVIDERS: PCP Nurse Practitioner Family; Visit Provider Nurse Practitioner Family
DX: Z12.4 Encounter for screening for malignant neoplasm of cervix (principal); Z11.51 Encounter for screening for human papillomavirus (HPV)
CPT/HCPCS: 88142; 87624

== ENCOUNTER 2020-11-10 03:20 | Outpatient (CLI) | payer MEDICAID, SELFPAY ==
[2020-11-10 15:30] LABS: TSH (W/Ref FT4) 1.95 uIU/mL (0.36-3.74)
== END 2020-11-10 03:21 | disposition home or self-care (01) ==
LOC: LBO 03:20
PROVIDERS: PCP Nurse Practitioner Family; Visit Provider Nurse Practitioner Family
DX: R53.83 Other fatigue (principal)
CPT/HCPCS: 36415; 84443

== ENCOUNTER 2020-12-10 10:33 | Emergency (ER) | payer MEDICAID, SELFPAY ==
[2020-12-10 10:37] VITALS: BP 139/59; PULSE 92; TEMP 36.7; O2SAT 99
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
== END 2020-12-10 11:32 | disposition home or self-care (01) ==
PROVIDERS: Emergency Provider Registered Nurse Emergency; PCP Nurse Practitioner Family
DX: T25.221A Burn of second degree of right foot, initial encounter (principal); S90.821A Blister (nonthermal), right foot, initial encounter; T49.4X5A Adverse effect of keratolytics, keratoplastics, and other hair treatment drugs and preparations, initial encounter; B07.0 Plantar wart
CPT/HCPCS: 29515; 99283

== ENCOUNTER 2020-12-19 02:37 | Outpatient (CLI) | payer MEDICAID, SELFPAY ==
--- NOTE | 2020-12-19 08:00 | DI.MAMMO_ITS ---
EXAM: MG MAMMO SCREENING 60 MIN DUR CLINICAL HISTORY: breast cancer screening,IMPLANTS TECHNIQUE: Bilateral full field digital CC and MLO mammographic images were obtained with 3D tomosyn thesis and utilizing computer aided detection (CAD). COMPARISON: None. FINDINGS: Masses/Architectural Distortion: None seen. There are bilateral breast implants which appear unremark able. Microcalcifications: No suspicious pleomorphic-type are seen. Skin Thickening/Nipple Retraction: None. IMPRESSION: 1. No specific features of malignancy noted. 2. Unless there is more urgent need, screening mammography is recommended, as per [place] [employer] guidelines. BI-RADS Category 1 - Negative Breast Density - Category B - Scattered areas of fibroglandular density Breast density category C or D implies that the patient has dense breast tissue. Dense breast tissue is very common and is not abnormal but dense breast tissue can make it harder to find cancer on a ma mmogram. Also, dense breast tissue may increase their breast cancer risk. This information about the result of the mammogram report was provided to the patient to raise their awareness. Use this report when you speak with the patient about their risks for breast cancer, which includes their family hist ory. At that time, you may recommend for more screening tests (Ultrasound or MRI) as they might be us eful based on their risk. A negative radiographic report should not delay biopsy if a dominant or clinically suspicious mass is present. Up to ten percent of cancers are not identified on mammography. A negative report may reinforce clinical impression. Adenosis and dense breasts may obscure an underlying neoplasm. False positive reports average 6 to 10%. Patient will receive a letter notifying them of these results.
== END 2020-12-19 02:57 ==
PROVIDERS: PCP Nurse Practitioner Family; Visit Provider Nurse Practitioner Family
DX: Z12.31 Encounter for screening mammogram for malignant neoplasm of breast (principal); Z98.82 Breast implant status
CPT/HCPCS: 77063; 77067

== ENCOUNTER 2021-09-18 01:19 | Outpatient (CLI) | payer MEDICAID, SELFPAY ==
--- NOTE | 2021-09-18 11:00 | NS.NUTBLAN_ITS ---
Александр is referred to Medical Nutrition Therapy for weight management. 5'2 206 lbs BMI: 37 No pertinent medical history. Having annual labs drawn this week. Meds: Semaglutide just prescribed, not started yet. . Stefano has been unable to cook pickled meat semaglutide, may need preauth per pharmacy. Stefano reports that she has gained 80 lbs in last 6 years. Her typical weight is 120-130 lbs and would like to get back to that weight. She has tried multiple diets and exercise but has been unsuccessful in losing weight. Diet recall: skips breakfast, pastry chef salad at lunch, meat and vegetable at dinner. Avoids most carbs, no caloric beverages. 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 Walks 3 miles per day at work. Sleeps 11 pm - 5 am. Difficulty slowing down. Reports has BM every 7 days. Per Stefano's history, suspect she has insulin resistance that has led to continued weight gain over the years despite eating well and exercising. GLP1ra may help her lose some weight (maybe 10%) but will need to alter her meal plan and exercise to optimal results. Reviewed ways to follow [id number] kcal, 80-100 g CHO, 60-70 g protein, 45-55 g fat meal plan, provided meal ideas. Stefano is resistant to adding that many carbs to her diet. Reviewed need for balance in macronutrients for optimal weight loss. 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 Stefano was resistant to changing her work load at this time. In view of Stefano's time constraints, weight loss surgery may be her best option. With a BMI of 37, she will need a comorbidity such as HTN or hyperlipidemia (labs pending). Current plan is for Stefano to start semaglutide x 90 days and reevaluate weight loss goals at that time. Also, recommend citrucel and 1000 mg magnesium daily for constipation. Follow up with Delfina Varela RD, [facility] to discuss weight loss surgery pros and cons. Follow up 10/17/21 at 8:30 am.
== END 2021-09-18 01:20 | disposition home or self-care (01) ==
LOC: DS 01:19
PROVIDERS: PCP Nurse Practitioner Family; Visit Provider Dietitian, Registered
DX: E66.8 Other obesity (principal); Z71.3 Dietary counseling and surveillance; Z68.37 Body mass index [BMI] 37.0-37.9, adult
CPT/HCPCS: 97802

== ENCOUNTER 2021-09-22 03:53 | Outpatient (CLI) | payer MEDICAID, SELFPAY ==
[2021-09-22 09:33] LABS: Hemoglobin A1C 5.7 % (<5.7)
[2021-09-22 09:40] LABS: BUN 24 mg/dL (7-18); CREATININE 0.8 mg/dL (0.55-1.02); Calculated LDL 166 mg/dL (<100); Chloride 103 mmol/L (98-107); Cholesterol 238 mg/dL (<200); Glucose 95 mg/dL (74-106); HDL Cholesterol 52 mg/dL (40-60); Potassium 4.1 mmol/L (3.5-5.1); Sodium 138 mmol/L (136-145); Triglyceride 101 mg/dL (<150)
== END 2021-09-22 03:54 | disposition home or self-care (01) ==
LOC: LBO 03:53
PROVIDERS: PCP Nurse Practitioner Family; Visit Provider Nurse Practitioner Family
DX: Z00.00 Encounter for general adult medical examination without abnormal findings (principal)
CPT/HCPCS: 36415; 80048; 80061; 83036

== ENCOUNTER 2021-10-23 04:27 | Outpatient (CLI) | payer MEDICAID, SELFPAY ==
--- NOTE | 2021-10-23 08:30 | NS.NUTBLAN_ITS ---
Assessment: Ms. Felton returns for follow up nutritional counseling for weight management. She continues to do four hours per week of moderate intensity physical activity. She is also almost never sedentary during the day. Her dietary recall shows that she has pared down quite a bit on her intake and is taking in 15 grams of CHO or less per meal. She has never been a big eater but she is focused on reducing CHO. She does report that she is not varying her intake much as she is not sure what other foods will work for her. Typical day of intake is: Breakfast-coffee with sugar free hazelnut creamer Lunch-yogurt or 2 pepper mohit cheese sticks Dinner-salad with protein and ranch dressing Snack-diet jello She drinks water Her weight today is down to [address] scale. She was 206 on 09/18/21. Her BMI is now 35. Nutrition Diagnosis: Class 2 obesity related to physiologic causes such as insulin resistance as evidenced by BMI of 35 kg/m2. Intervention: Acknowledged Ms. Felton's excellent efforts at losing weight and staying physically active. Encouraged her to continue with doing what she is doing as it is working and she states that she does not feel hungry or low energy. Provided her with a booklet on meal planning using CHO counting. She stated this information will help her to increase the variety of what she eats. Monitoring and Evaluation: Ms. Felton will continue to self-monitor her weight, PO, and physical activity. She is encouraged to call me with any questions or concerns regarding her nutrition therapy. We continue to evaluate the effectiveness of her nutrition care plan and make changes as needed. She has my contact information. Thank you for the referral.
== END 2021-10-23 04:28 | disposition home or self-care (01) ==
LOC: DS 04:28
PROVIDERS: PCP Nurse Practitioner Family; Visit Provider Dietitian, Registered
DX: R73.03 Prediabetes (principal); E66.8 Other obesity; Z68.35 Body mass index [BMI] 35.0-35.9, adult; Z71.3 Dietary counseling and surveillance
CPT/HCPCS: 97803

== ENCOUNTER → 2022-02-20 18:47 | Outpatient (CLI) | payer MEDICAID, SELFPAY | PROVIDERS: PCP Nurse Practitioner Family; Visit Provider Nurse Practitioner Family | DX: R69 Illness, unspecified (principal) ==

== ENCOUNTER → 2022-02-22 01:48 | Outpatient (CLI) | payer MEDICAID, SELFPAY ==
--- NOTE | 2022-02-22 12:20 | DI.MAMMO_ITS ---
Exam(s) MG MAMMO SCREENING 60 MIN DUR EXAM: MG MAMMO SCREENING 60 MIN DUR CLINICAL HISTORY: breast cancer screening. TECHNIQUE: Bilateral full field digital CC and MLO mammographic images were obtained with 3D tomosyn thesis and utilizing computer aided detection (CAD). Both conventional and implant displacement views were performed. COMPARISON: Prior mammograms were reviewed, the most recent being December 2020.. FINDINGS: Retropectoral implants are again noted. These appear intact. There are no new spiculated masses nor malignant appearing microcalcification groups. There is no significant architectural distortion nor skin thickening-retraction. IMPRESSION: No radiographic evidence of malignancy. BI-RADS Category 1 - Negative Breast Density - Category B - Scattered areas of fibroglandular density Breast density Category C or D implies that the patient has dense breast tissue. Dense breast tissue can make it harder to find cancer on a mammogram. Dense breast tissue is also associated with an incr eased risk of breast cancer. This information about the result of the mammogram report was provided to the patient to raise their awareness. Use this report when you speak with the patient about their risks for breast cancer, which includes their family history. At that time, you may recommend additional screening tests (Ultrasoun d or MRI) as these tests may add significant information. A negative radiographic report should not delay biopsy if a dominant or clinically suspicious mass is present. Up to ten percent of cancers are not identified on mammography. A negative report may reinforce clinical impression. Adenosis and dense breasts may obscure an underlying neoplasm. False positive reports average 6 to 10%. Patient will receive a letter notifying them of these results.
== END ==
PROVIDERS: PCP Nurse Practitioner Family; Visit Provider Nurse Practitioner Family
DX: Z12.31 Encounter for screening mammogram for malignant neoplasm of breast (principal); Z98.82 Breast implant status
CPT/HCPCS: 77063; 77067

== ENCOUNTER 2022-07-16 03:18 | Outpatient (CLI) | payer MEDICAID, SELFPAY ==
[2022-07-16 13:08] LABS: Anion Gap 8.6 mmol/L (3-11); BUN 17 mg/dL (7-18); CO2 27.4 mmol/L (21.0-32.0); CREATININE 0.7 mg/dL (0.55-1.02); Calcium 8.9 mg/dL (8.5-10.1); Chloride 105 mmol/L (98-107); Estimated GFR 109.98 (mL/min/1.73m2); Glucose 74 mg/dL (74-106); Potassium 4.3 mmol/L (3.5-5.1); Sodium 141 mmol/L (136-145)
== END 2022-07-16 03:19 | disposition home or self-care (01) ==
LOC: LOS 03:18
PROVIDERS: PCP Nurse Practitioner Family; Visit Provider Nurse Practitioner Family
DX: E66.8 Other obesity (principal)
CPT/HCPCS: 36415; 80048

== ENCOUNTER 2023-03-11 02:39 | Outpatient (CLI) | payer MEDICAID, SELFPAY ==
--- NOTE | 2023-03-11 08:00 | DI.MAMMO_ITS ---
Exam(s) MG MAMMO SCREENING 60 MIN DUR EXAM: MG MAMMO SCREENING 60 MIN DUR CLINICAL HISTORY: breast cancer screening,IMPLANTS,Z12.39 TECHNIQUE: Bilateral full field digital CC and MLO mammographic images were obtained with 3D tomosyn thesis and utilizing computer aided detection (CAD). COMPARISON: Available for comparison. FINDINGS: There again seen stable bilateral breast implants. Masses/Architectural Distortion: Focal asymmetry in the central right breast is unchanged. No suspic ious masses or areas of architectural distortion are seen. Microcalcifications: No suspicious pleomorphic-type are seen. Skin Thickening/Nipple Retraction: None. IMPRESSION: 1. No significant interval change with no specific features of malignancy noted. 2. Unless there is more urgent need, screening mammography is recommended, as per [place] [employer] guidelines. BI-RADS Category 1 - Negative Breast Density - Category B - Scattered areas of fibroglandular density Breast density category C or D implies that the patient has dense breast tissue. Dense breast tissue is very common and is not abnormal but dense breast tissue can make it harder to find cancer on a ma mmogram. Also, dense breast tissue may increase their breast cancer risk. This information about the result of the mammogram report was provided to the patient to raise their awareness. Use this report when you speak with the patient about their risks for breast cancer, which includes their family hist ory. At that time, you may recommend for more screening tests (Ultrasound or MRI) as they might be us eful based on their risk. A negative radiographic report should not delay biopsy if a dominant or clinically suspicious mass is present. Up to ten percent of cancers are not identified on mammography. A negative report may reinforce clinical impression. Adenosis and dense breasts may obscure an underlying neoplasm. False positive reports average 6 to 10%. Patient will receive a letter notifying them of these results.
== END 2023-03-11 02:59 ==
LOC: DI 02:39
PROVIDERS: PCP Nurse Practitioner Family; Visit Provider Nurse Practitioner Family
DX: Z12.31 Encounter for screening mammogram for malignant neoplasm of breast (principal)
CPT/HCPCS: 77063; 77067

== ENCOUNTER 2023-04-22 19:44 | Emergency (ER) | payer MEDICAID, SELFPAY ==
[2023-04-22 20:01] VITALS: BP 134/55; PULSE 100; RESP 14; TEMP 36.8; O2SAT 99
--- NOTE | 2023-04-22 20:16 | W.ED.GENAD ---
Discharge Plan Disposition Patient Disposition: Home Condition: Good Discharge Details Clinical Impression: Acute pain of right ear Primary Care Provider: Gayathri Gracia ED Provider: Jean Claude Pastor Home Meds and New Rx's Prescriptions: New azithromycin [Zithromax Z-Sebastien] 250 mg tablet See Rx Instructions .ROUTE .COMPLEX Qty: 6 0RF Rx Instructions: For 250 mg dose pack: take 500 mg today (day 1), then 250 mg for 4 days (days 2-5) No Action multivitamin [Multi-Day] 1 EACH tablet 1 ea PO DAILY (DME) pen needle, diabetic [BD Ultra-Fine Short Pen Needle] 31 gauge x 5/16 needle See Rx Instructions .MEDSUPPLY Qty: 100 3RF Rx Instructions: Use with pen weekly Discharge Instructions Additional Instructions: At this time there is not evidence of an ear infection. You have a small amount of fluid that is not infected in your ear. This is a reflection of the allergies that you are currently going through. Please continue to take Tylenol and Motrin as needed to help reduce inflammation. If your symptoms continue and worsen over the next 36 to 48 hours please take the antibiotic as prescribed. If you notice any worsening of your symptoms, or any new symptoms such as vomiting, diarrhea, fever, chills, shortness of breath, chest pain, numbness, weakness, or fainting , please return immediately to the emergency department for reevaluation. Please follow up with your primary care provider as soon as possible for reassessment and reevaluation. As always, it was a pleasure participating in your medical care today. Referrals: Gayathri Gracia, RAJNI [Primary Care Provider] - Discharge Data Discharge Date/Time-TO BE ENTERED AT DEPARTURE: 04/22/23 20:48 Medical Decision Making 42-year-old female with a past medical history of multiple previous ear infections presents today for evaluation of bilateral ear pain worse on the right than the left. Been present for the last few days. She states that she has had mild runny nose and congestion, and then over the last 24 to 48 hours has pain in the ears bilaterally worse on the right than the left. She denies any drainage or discharge. She has been taking NyQuil and DayQuil. No other complaints at this time. No other modifying factors. Physical exam demonstrates evidence of small amount of serous fluid in the right tympanic membrane, no evidence of effusion or bulging with purulence. Suspect mild serous congestion at this time. No evidence of purulent otitis media. Will recommend continued NSAIDs at home, as well as close monitoring. If the patient's symptoms worsen over the next 24 to 48 hours, then will recommend antibiotic administration. Will give azithromycin prescription for home use which she has tolerated before. Discussed red flags for which to return. I have extensively reviewed the treatment plan and discharge instructions with the patient and their family. I have addressed all patient concerns at this time. The patient and family was made aware of what symptoms to monitor for that would warrant a return to the emergency department. Discussed the plan with the patient and family, they demonstrate verbal understanding and agreement with our assessment and plan at this time. The documentation in this chart was dictated using [employer] dictation software. Please excuse any dictation errors. HPI General Date/Time Provider Initiated Documentation: 04/22/23 19:48. HPI Narrative: 42-year-old female with a past medical history of multiple previous ear infections presents today for evaluation of bilateral ear pain worse on the right than the left. Been present for the last few days. She states that she has had mild runny nose and congestion, and then over the last 24 to 48 hours has pain in the ears bilaterally worse on the right than the left. She denies any drainage or discharge. She has been taking NyQuil and DayQuil. No other complaints at this time. No other modifying factors. Related Data Home Medications Medication Instructions Recorded Confirmed multivitamin (Multi-Day tablet) 1 ea PO DAILY 11/17/12 04/22/23 pen needle, diabetic 31 gauge x #100 ea 01/28/23 04/08/23 5/16 (BD Ultra-Fine Short Pen Needle) azithromycin 250 mg tablet See Rx Instructions PO .COMPLEX #6 04/22/23 (Zithromax Z-Sebastien) tabs Previous Rx's Medication Instructions Recorded pen needle, diabetic 31 gauge x #100 ea 01/28/23 5/16 (BD Ultra-Fine Short Pen Needle) azithromycin 250 mg tablet See Rx Instructions PO .COMPLEX #6 04/22/23 (Zithromax Z-Sebastien) tabs Allergies Allergy/AdvReac Type Severity Reaction Status Date / Time amoxicillin Allergy Intermediate Skin Rash Verified 04/22/23 20:06 dulaglutide AdvReac Nausea Verified 04/22/23 20:06 General Stated Complaint: EarProblem SANTINO: 4 Review of Systems All systems reviewed & are unremarkable except as noted in HPI and below PFSH All Active Problems Acute pain of right ear (Acute) Hyperlipidemia (Chronic) Obesity (Chronic) Medical History Abnormal uterine bleeding (AUB) 07/2019. Nl TSH. EMBx: benign. Rx with Mirena IUD COVID-19 virus infection (~06/2022) Prediabetes Surgical History S/P breast augmentation S/P carpal tunnel release (08/01/18) Bilateral Family History Sister , age 9 Brain tumor age 9 yrs Mother No problems noted. Father No problems noted. Brother No problems noted. Son No problems noted. Daughter No problems noted. Maternal Grandfather , age 76 No problems noted. Paternal Grandfather , age 80 No problems noted. Maternal Grandmother , 93 No problems noted. Paternal Grandmother No problems noted. Social History Smoking/Tobacco Use Status: Current-Occasional Tobacco Type: cigarettes Second Hand Exposure: No Smoking risk assessment performed?: Yes Alcohol Intake: never Drug use: Never Substance use type: does not use Caregiver/Support person: No Household members: spouse and children Housing: house Pets and animals: Yes Pets and animals: dog(s) Sexually active: Yes Do you think of yourself as: straight/heterosexual Current gender identity: female What is your relationship status?: How often do you talk on the phone with friends or family?: three or more times per week How often do you get together with friends or relatives?: once per week How often do you attend religion or mormon services?: decline to answer Do you belong to any clubs or organized social groups?: no Panel score (0-1 are the most socially isolated patients): 2 What type of physical activity do you participate in: other Details: Treadmill, Hula-Hoop Duration: 15-30 minutes/day Frequency: 3-4 times per week Any/Taoism: None Do you feel safe at home: Yes Do you feel safe in your relationship?: Yes Female Reproductive History Menstrual control method: other History History 2 Para 2 Hx # Term Pregnancies Multiple births Hx # Pregnancies Ectopic pregnancies AB induced Hx Number of Living Children 2 AB spontaneous Exam Narrative Exam Narrative: 1.Const: Well-nourished, Well-developed, appearing stated age 2.Eyes: PERRL, no conjunctival injection, and symmetrical lids. 3.ENT: Atraumatic external nose and ears. Moist MM. Neck: Symmetric, trachea midline, No thyromegaly. Patient's right ear demonstrates a minimal amount of serous effusion. Left ear demonstrates no effusion. No significant erythema bilaterally. No evidence of purulent otitis media. 4.CVS: +S1/S2, No murmurs or gallops. Peripheral pulses 2+ and equal in all extremities. Brisk capillary refill in all extremities. 5.RESP: Unlabored respiratory effort. Clear to auscultation bilaterally. No wheezes rales or rhonchi 6.GI: Soft, Nontender/Nondistended, No hepatosplenomegaly. No guarding or rebound. 7.MSK: Normocephalic/Atraumatic, Extremities w/o deformity or ttp No cyanosis or clubbing, Normal movement of all extremities 8.Skin: Warm, Dry. No rashes or lesions. 9.Neuro: director search marketing strategies II-XII grossly intact. Sensation grossly intact, no focal neurologic deficits. 10.Psych: (AAO) x3. Appropriate mood and affect Course Vital Signs Vital signs: Vital Signs Temperature 36.8 C 04/22/23 20:01 Pulse 100 H 04/22/23 20:01 Respiratory Rate 14 04/22/23 20:01 Blood Pressure 134/55 L 04/22/23 20:01 Pulse Oximetry 99 04/22/23 20:01 Temperature 36.8 C 04/22/23 20:01 Temperature Source Temporal Artery Scan 04/22/23 20:01 Pulse 100 H 04/22/23 20:01 Respiratory Rate 14 04/22/23 20:01 Blood Pressure 134/55 L 04/22/23 20:01 Blood Pressure Position Sitting 04/22/23 20:01 Pulse Oximetry 99 04/22/23 20:01 Oxygen Delivery Method Room Air 04/22/23 20:01 Oxygen Flow Rate 0 04/22/23 20:01 Pain Level 7 04/22/23 20:01
== END 2023-04-22 20:48 | disposition home or self-care (01) ==
PROVIDERS: Emergency Provider Student in an Organized Health Care Education/Training Program; PCP Nurse Practitioner Family
DX: H92.03 Otalgia, bilateral (principal)
CPT/HCPCS: 99283; 99284

== ENCOUNTER 2023-06-18 21:06 | Emergency (ER) | payer MEDICAID, SELFPAY ==
[2023-06-18 21:13] VITALS: BP 143/71; PULSE 124; RESP 18; TEMP 37.1; O2SAT 100
--- NOTE | 2023-06-18 21:53 | W.ED.GENAD ---
Discharge Plan Disposition Patient Disposition: Home Condition: Good Discharge Details Clinical Impression: Laceration of scalp, Head injury, Fall Primary Care Provider: aGyathri Gracia ED Provider: Amy Quesada Home Meds and New Rx's Prescriptions: No Action multivitamin [Multi-Day] 1 EACH tablet 1 ea PO DAILY (DME) pen needle, diabetic [BD Ultra-Fine Short Pen Needle] 31 gauge x 5/16 needle See Rx Instructions .MEDSUPPLY Qty: 100 3RF Rx Instructions: Use with pen weekly phentermine 15 mg capsule 15 mg PO DAILY Qty: 90 0RF azithromycin [Zithromax Z-Sebastien] 250 mg tablet See Rx Instructions .ROUTE .COMPLEX Qty: 6 0RF Rx Instructions: For 250 mg dose pack: take 500 mg today (day 1), then 250 mg for 4 days (days 2-5) Discharge Instructions Instructions: Laceration (ED), Head Injury (ED) Additional Instructions: Sutures out in 7 days at primary care, urgent care, or in the ED. Return to the emergency department for new or worsening symptoms, including severe headache, nausea, vomiting, numbness, weakness of one part of your body, or if you have any other concerns. Medical Decision Making 42yo F presenting with scalp laceration after trip and fall. No LOC, not on AC. Last tetanus 3 years ago, will not update today. Tachycardiac on arrival, vital signs otherwise reassuring. Denies any pain. 1cm scalp laceration, otherwise no traumatic findings on exam, normal neurological exam, normal heart rate on my exam. Low suspicion for serious intracranial injury; will not get CT. Extent of injury not suggestive of hemodynimically significant bleeding, will not get CBC at this time. Laceration repaired. Repeat vital signs reassuring. Discharged home; discharge instructions including return precautions were reviewed with patient who verbalized understanding. All questions were answered and they are in full agreement with the plan. HPI General Mode of arrival: ambulatory. Date/Time Provider Initiated Documentation: 06/18/23 21:14. Limitations to Documentation: no limitations. Information obtained by: patient. HPI Narrative: 42yo previously healthy female presenting with scalp laceration. Was trying to clean up outside, tripped on a hole, fell onto her right side and struck her head on a tree root. No LOC. Does not take blood thinners. Denies any pain including headache. No nausea or vomiting. She is otherwise in her usual state of health. Related Data Home Medications Medication Instructions Recorded Confirmed multivitamin (Multi-Day tablet) 1 ea PO DAILY 11/17/12 04/22/23 pen needle, diabetic 31 gauge x #100 ea 01/28/23 04/08/23 5/16 (BD Ultra-Fine Short Pen Needle) azithromycin 250 mg tablet See Rx Instructions PO .COMPLEX #6 04/22/23 (Zithromax Z-Sebastien) tabs phentermine 15 mg capsule 15 mg PO DAILY #90 caps 05/27/23 Previous Rx's Medication Instructions Recorded pen needle, diabetic 31 gauge x #100 ea 01/28/23 5 (BD Ultra-Fine Short Pen Needle) azithromycin 250 mg tablet See Rx Instructions PO .COMPLEX #6 04/22/23 (Zithromax Z-Sebastien) tabs phentermine 15 mg capsule 15 mg PO DAILY #90 caps 05/27/23 Allergies Allergy/AdvReac Type Severity Reaction Status Date / Time amoxicillin Allergy Intermediate Skin Rash Verified 04/22/23 20:06 dulaglutide AdvReac Nausea Verified 04/22/23 20:06 General Stated Complaint: Fall/Non TraumaCriteria SANTINO: 4 Review of Systems Narrative: see HPI PFSH All Active Problems (Updated 06/18/23 @ 22:00 by Amy Quesada MD) Laceration of scalp (Acute) Head injury (Acute) Fall (Acute) Hyperlipidemia (Chronic) Obesity (Chronic) Medical History Abnormal uterine bleeding (AUB) 07/2019. Nl TSH. EMBx: benign. Rx with Mirena IUD COVID-19 virus infection (~06/2022) Prediabetes Surgical History S/P breast augmentation S/P carpal tunnel release (08/01/18) Bilateral Family History Sister , age 9 Brain tumor age 9 yrs Mother No problems noted. Father No problems noted. Brother No problems noted. Son No problems noted. Daughter No problems noted. Maternal Grandfather , age 76 No problems noted. Paternal Grandfather , age 80 No problems noted. Maternal Grandmother , 93 No problems noted. Paternal Grandmother No problems noted. Social History Smoking/Tobacco Use Status: Current-Occasional Tobacco Type: cigarettes Second Hand Exposure: No Smoking risk assessment performed?: Yes Alcohol Intake: never Drug use: Never Substance use type: does not use Caregiver/Support person: No Household members: spouse and children Housing: house Pets and animals: Yes Pets and animals: dog(s) Sexually active: Yes Do you think of yourself as: straight/heterosexual Current gender identity: female What is your relationship status?: How often do you talk on the phone with friends or family?: three or more times per week How often do you get together with friends or relatives?: once per week How often do you attend baptism or restorationism services?: decline to answer Do you belong to any clubs or organized social groups?: no Panel score (0-1 are the most socially isolated patients): 2 What type of physical activity do you participate in: other Details: Treadmill, Hula-Hoop Duration: 15-30 minutes/day Frequency: 3-4 times per week Any/Restorationist: None Do you feel safe at home: Yes Do you feel safe in your relationship?: Yes Female Reproductive History Menstrual control method: other History History 2 Para 2 Hx # Term Pregnancies Multiple births Hx # Pregnancies Ectopic pregnancies AB induced Hx Number of Living Children 2 AB spontaneous Exam Narrative Exam Narrative: General: Alert, well appearing, well nourished, in no acute distress. Head: 1cm laceration to right frontal scalp just into hairline. Neck: Trachea midline, Neck supple. Cardiac: RRR, no murmurs appreciated Resp: No respiratory distress. CTAB. Abd: Soft, non-distended, nontender : No suprapubic tenderness. No CVA tenderness. Extremities: No deformities. No peripheral edema. Neurologic: GCS 15. PERRL. EOMI. Fluent speech, no dysarthria. Normal sensation in V1, V2, and V3 segments bilaterally Motor- 5/5 strength symmetric bilateral upper and lower extremities in Sensation- Intact to light touch and symmetric multiple dermatomes including upper and lower extremities Gait/station: Normal stance. No truncal ataxia. Steady gait with equal normal steps Course Vital Signs Vital signs: Vital Signs Temperature 37.1 C 06/18/23 21:13 Pulse 124 H 06/18/23 21:13 Respiratory Rate 18 06/18/23 21:13 Blood Pressure 143/71 H 06/18/23 21:13 Pulse Oximetry 100 06/18/23 21:13 Temperature 37.1 C 06/18/23 21:13 Pulse 124 H 06/18/23 21:13 Respiratory Rate 18 06/18/23 21:13 Blood Pressure 143/71 H 06/18/23 21:13 Pulse Oximetry 100 06/18/23 21:13 Oxygen Delivery Method Room Air 06/18/23 21:13 Oxygen Flow Rate 0 06/18/23 21:13 Pain Level 5 06/18/23 21:13 Procedures Laceration Laceration 1: Site: scalp Side (If applicable): right Size (cm): 1 Description: linear Depth: simple, single layer Local Anesthetic: Lidocaine 2% Amount of anesthesia used (mL): 2 Pre-repair: irrigated extensively and deep structures intact Skin layer closed with: nylon Size (cm): 5-0 Number of sutures: 2 Technique: simple, interrupted
[2023-06-18 22:14] VITALS: BP 143/79; PULSE 99; RESP 18; O2SAT 98
== END 2023-06-18 22:21 | disposition home or self-care (01) ==
PROVIDERS: Emergency Provider Student in an Organized Health Care Education/Training Program; PCP Nurse Practitioner Family
DX: S01.81XA Laceration without foreign body of other part of head, initial encounter (principal); W01.10XA Fall on same level from slipping, tripping and stumbling with subsequent striking against unspecified object, initial encounter
CPT/HCPCS: 12001

== ENCOUNTER 2023-09-04 10:37 | Outpatient (CLI) | payer MEDICAID, SELFPAY ==
[2023-09-04 12:29] LABS: Abs Immature Grans 0.02 10^3/uL (0.0-0.06); Absolute Basophil Count 0.04 10^3/uL (0.0-0.2); Absolute Eosinophil Count 0.08 10^3/uL (0.0-0.7); Absolute Monocyte Count 0.46 10^3/uL (0.1-0.8); Absolute Neutrophil Count 5.76 10^3/uL (1.2-6.7); Basophils % 0.4; Eosinophils % 0.9; HCT 41.5 % (36.0-46.0); HGB 13.3 g/dL (11.2-15.7); Immature Grans % 0.2; Lymphocytes % 29.8; MCH 29.7 pg (27.0-33.0); MCV 93 fL (80-95); MPV 10.9 fL (8.0-11.0); Monocytes % 5.1; Neutrophils % 63.6; Platelet Count 280 10^3/uL (130-400); RBC 4.48 10^6/uL (3.93-5.22); RDW-SD 44.3 fL; WBC 9.06 10^3/uL (4.4-10.8)
[2023-09-04 12:46] LABS: Hemoglobin A1C 5.3 % (<5.7)
[2023-09-04 13:05] LABS: ALT 16 U/L (14-59); AST 10 U/L (15-37); Albumin 3.7 g/dL (3.4-5.0); Alkaline Phosphatase 69 U/L (46-116); Anion Gap 7.3 mmol/L (3-11); BUN 18 mg/dL (7-18); Bilirubin, Total 0.3 mg/dL (0.2-1.0); CO2 26.7 mmol/L (21.0-32.0); CREATININE 0.9 mg/dL (0.55-1.02); Calculated LDL 140 mg/dL (<100); Chloride 105 mmol/L (98-107); Cholesterol 225 mg/dL (<200); Estimated GFR 80.84 (mL/min/1.73m2); Glucose 78 mg/dL (74-106); HDL Cholesterol 53 mg/dL (40-60); Potassium 3.7 mmol/L (3.5-5.1); Sodium 139 mmol/L (136-145); Total Protein 7.3 g/dL (6.4-8.2); Triglyceride 162 mg/dL (<150)
[2023-09-04 13:06] LABS: Vitamin D 25 Total 65.5 ng/mL (30-100)
[2023-09-04 13:08] LABS: Vitamin B12 > 2000 pg/mL (193-986)
[2023-09-04 13:17] LABS: Uric Acid 2.8 mg/dL (2.6-6.0)
[2023-09-05 08:53] LABS: Insulin 9.1 uIU/mL (<29.0)
== END 2023-09-04 10:38 | disposition home or self-care (01) ==
LOC: LOS 10:38
PROVIDERS: PCP Nurse Practitioner Family; Visit Provider Family Medicine
DX: E66.9 Obesity, unspecified (principal); Z68.30 Body mass index [BMI] 30.0-30.9, adult
CPT/HCPCS: 36415; 80053; 80061; 82306; 82607; 83036; 83525; 84550; 85025

== ENCOUNTER 2023-11-18 05:26 | Outpatient (CLI) | payer MEDICAID, SELFPAY ==
[2023-11-18 13:15] LABS: Anion Gap 8.4 mmol/L (3-11); BUN 22 mg/dL (7-18); CO2 27.6 mmol/L (21.0-32.0); CREATININE 1.1 mg/dL (0.55-1.02); Calcium 8.9 mg/dL (8.5-10.1); Chloride 104 mmol/L (98-107); Estimated GFR 63.54 (mL/min/1.73m2); Glucose 87 mg/dL (74-106); Potassium 3.7 mmol/L (3.5-5.1); Sodium 140 mmol/L (136-145)
== END 2023-11-18 05:27 | disposition home or self-care (01) ==
LOC: LOS 05:26
PROVIDERS: PCP Nurse Practitioner Family; Visit Provider Family Medicine
DX: E78.5 Hyperlipidemia, unspecified (principal); E66.8 Other obesity; Z68.30 Body mass index [BMI] 30.0-30.9, adult; R73.03 Prediabetes
CPT/HCPCS: 36415; 80048; 84443

== ENCOUNTER 2024-02-24 14:09 | Emergency (ER) | payer MEDICAID, SELFPAY ==
[2024-02-24 14:12] VITALS: BP 144/71; PULSE 84; RESP 18; TEMP 37; O2SAT 99
[2024-02-24 14:36] LABS: Bilirubin Negative (Negative); Blood Negative (Negative); Clarity Clear (Clear); Glucose Negative (Negative); Ketones Negative (Negative); Leukocyte Esterase Negative (Negative); Nitrite Negative (Negative); Specific Gravity 1.025 (1.005-1.025); Urobilinogen 0.2 mg/dL (Up to 0.2)
--- NOTE | 2024-02-24 14:40 | ED.GENADUL_ITS ---
Discharge Plan Disposition Patient Disposition: Home Condition: Stable Discharge Details Chief Complaint: GenMedical Clinical Impression: Thigh pain Primary Care Provider: Gayathri Gracia ED Provider: Lazaro Mcclendon Home Meds and New Rx's Prescriptions: No Action multivitamin [Multi-Day] 1 EACH tablet 1 ea PO DAILY (DME) pen needle, diabetic [BD Ultra-Fine Short Pen Needle] 31 gauge x 5/16 n eedle See Rx Instructions .MEDSUPPLY Qty: 100 3RF Rx Instructions: Use with pen weekly bupropion HCl 300 mg tablet extended release 24 hr 300 mg PO DAILY Patient Comments: TAKE ONE TABLET BY MOUTH EVERY MORNING naltrexone 50 mg tablet 25 mg PO DAILY Patient Comments: TAKE 1/4 TABLET BY MOUTH EVERY MORNING DAILY FOR A WEEK THEN ONE-HALF TABLET EVERY MORNING FOR A WEEK Discharge Instructions Instructions: Leg Pain (ED) Additional Instructions: Please follow-up with your primary care physician. Return to the emerged part for any worsening symptoms HPI General Date/Time Provider Initiated Documentation: 02/24/24 14:16 . HPI Narrative: 43-year-old female presents with sensation of pinched nerve anterior right thigh over the last several days, was seen by express care and given follow-up appointment in 2 weeks, patient denies recent trauma. Denies bowel or bladder issues denies issue walking denies weakness or numbness. Described as painful and intermittent lasting a couple seconds to a minute at a time with self resolution. Related Data Home Medications Medication Instructions Recorded Confirmed multivitamin (Multi-Day tablet) 1 ea PO DAILY 11/17/12 02/24/24 pen needle, diabetic 31 gauge x #100 ea 01/28/23 09/04/2316 (BD Ultra-Fine Short Pen Needle) bupropion HCl 300 mg 24 hr tablet, 300 mg PO DAILY 02/24/24 02/24/24 extended release naltrexone 50 mg tablet 25 mg PO DAILY 02/24/24 02/24/24 Previous Rx's Medication Instructions Recorded pen needle, diabetic 31 gauge x #100 ea 01/28/2316 (BD Ultra-Fine Short Pen Needle) Allergies Allergy/AdvReac Type Severity Reaction Status Date / Time amoxicillin Allergy Intermediate Skin Rash Verified 02/24/24 14:16 dulaglutide AdvReac Nausea Verified 02/24/24 14:16 General Stated Complaint: GenMedical SANTINO: 4 Review of Systems Narrative: Review of Systems Constitutional: negative Eyes: negative ENT: negative Cardiovascular: negative Respiratory: negative Gastrointestinal: negative : negative Musculoskeletal: negative Skin: negative Neurologic: Thigh pain Psych: negative Exam Narrative Exam Narrative: Physical Examination General: alert, awake, cooperative, resting comfortably, no acute distress HEENT: normocephalic, atraumatic; PERRL, EOM intact, conjunctiva normal; no nasal discharge; moist mucous membranes, oral and pharyngeal mucosa normal, tolerating secretions Neck: supple, trachea midline; full ROM Chest: normal to inspection Respiratory: normal respiratory effort, speaking in full sentences Skin: no lesions, rashes or trauma appreciated Neuro: AAOx3, normal speech, moving all extremities; full strength and sensation bilateral lower extremities Extremities: Full range of motion, ambulatory, full strength Psych: Appropriate mood and affect Course Vital Signs Vital signs: Vital Signs Temperature 37.0 C 02/24/24 14:12 Pulse 84 02/24/24 14:12 Respiratory Rate 18 02/24/24 14:12 Blood Pressure 144/71 H 02/24/24 14:12 Pulse Oximetry 99 02/24/24 14:12 Temperature 37.0 C 02/24/24 14:12 Temperature Source Skin 02/24/24 14:12 Pulse 84 02/24/24 14:12 Respiratory Rate 18 02/24/24 14:12 Respiratory Effort Normal 02/24/24 14:15 Blood Pressure 144/71 H 02/24/24 14:12 Pulse Oximetry 99 02/24/24 14:12 Oxygen Delivery Method Room Air 02/24/24 14:12 Oxygen Flow Rate 0 02/24/24 14:12 Lab/Test Results Lab/Test Results: Laboratory Tests Range/Units 02/24/24 14:20 Urine Protein Cancelled Urine Blood Cancelled Urine Nitrite Cancelled Ur Leukocyte Esterase Cancelled POC- Test(urine) Negative Medical Decision Making 43-year-old female presents with painful paresthesia right anterior thigh over the last couple of days, intermittent in nature brief self resolving, denies recent trauma, no bowel or bladder issues, afebrile nontoxic neurologically intact full strength and sensation bilateral lower extremities, patient describes pain is radiating from anterior hip region down anterior thigh, high clinical suspicion for lateral femoral cutaneous nerve entrapment/meralgia paresthetica lower suspicion for sciatica or spinal cord compression. No sensorimotor deficits on examination, no gait abnormality. No external signs of trauma. No asymmetric edema to suggest DVT no signs of infection. Trial of anti-inflammatory in the form of dexamethasone IM, counseled patient to trial loosefitting clothing to the lower extremity, home care instructions and return precautions given. Will follow with primary care physician Quality:SDOH Health Related Social Needs: No Data to Display PFSH All Active Problems (Updated 02/24/24 @ 14:59 by Lazaro Mcclendon MD) Thigh pain (Acute) Hyperlipidemia (Chronic) Obesity (Chronic) Medical History Prediabetes Abnormal uterine bleeding (AUB) 07/2019. Nl TSH. EMBx: benign. Rx with Mirena IUD Surgical History S/P breast augmentation S/P carpal tunnel release (08/01/18) Bilateral Family History Mother No problems noted. Father No problems noted. Brother No problems noted. Son No problems noted. Daughter No problems noted. Maternal Grandfather , age 76 No problems noted. Paternal Grandfather , age 80 No problems noted. Maternal Grandmother , 93 No problems noted. Paternal Grandmother No problems noted. Sister , 9 Brain tumor Social History Smoking/Tobacco Use Status: Current-Occasional Tobacco Type: cigarettes Second Hand Exposure: No Smoking risk assessment performed?: Yes Alcohol Intake: current Alcohol Intake frequency: holidays/special occasions only Drug use: Never Substance use type: does not use Adopted: No Caregiver/Support person: No Household members: spouse and children Housing: house Number of Children: 2 Communication Needs: None Education Level: high school Do you need help understanding health information?: Never Pets and animals: Yes Pets and animals: dog(s) Sexually active: Yes Do you think of yourself as: straight/heterosexual Current gender identity: female What is your relationship status?: How often do you talk on the phone with friends or family?: three or more times per week How often do you get together with friends or relatives?: three or more times per week How often do you attend episcopalian or yazidi services?: decline to answer Do you belong to any clubs or organized social groups?: no Panel score (0-1 are the most socially isolated patients): 2 What type of physical activity do you participate in: walking Frequency: daily Any/Orthodoxy: None Seatbelt use: always Firearms in home: Yes Do you feel safe at home: Yes Do you feel safe in your relationship?: Yes Victim of physical abuse: No Victim of emotional abuse: No Victim of sexual abuse: No Would you like helpful sources: No Female Reproductive History Menstrual control method: other History History 2 Para 2 Hx # Term Pregnancies Multiple births Hx # Pregnancies Ectopic pregnancies AB induced Hx Number of Living Children 2 AB spontaneous
[2024-02-24] MEDS: Dexamethasone 10 MG/ML VIAL IM (14:43)
== END 2024-02-24 15:12 | disposition home or self-care (01) ==
PROVIDERS: Emergency Provider Emergency Medicine; PCP Nurse Practitioner Family
DX: M79.651 Pain in right thigh (principal); R20.2 Paresthesia of skin; F17.210 Nicotine dependence, cigarettes, uncomplicated
CPT/HCPCS: 81025; 96372; 99284; 81003; 99283; J1100

== ENCOUNTER → 2024-03-13 00:41 | Outpatient (CLI) | payer MEDICAID, SELFPAY ==
--- NOTE | 2024-03-13 07:15 | DI.MAMMO_ITS ---
Exam(s) MG MAMMO SCREENING 60 MIN DUR EXAM: MG MAMMO SCREENING 60 MIN DUR CLINICAL HISTORY: breast cancer screening,IMPLANTS,Z12.39 TECHNIQUE: Bilateral full field digital CC and MLO mammographic images were obtained with 3D tomosyn thesis and utilizing computer aided detection (CAD). COMPARISON: Available for comparison. FINDINGS: Masses/Architectural Distortion: The patient has bilateral breast implants. No suspicious masses or areas of architectural distortion are seen. Microcalcifications: No suspicious pleomorphic-type are seen. Skin Thickening/Nipple Retraction: None. IMPRESSION: 1. No significant interval change with no specific features of malignancy noted. 2. Unless there is more urgent need, screening mammography is recommended, as per [employer] guidelines. BI-RADS Category 1 - Negative Breast Density - Category A - Almost entirely fatty Breast density category C or D implies that the patient has dense breast tissue. Dense breast tissue is very common and is not abnormal but dense breast tissue can make it harder to find cancer on a ma mmogram. Also, dense breast tissue may increase their breast cancer risk. This information about the result of the mammogram report was provided to the patient to raise their awareness. Use this report when you speak with the patient about their risks for breast cancer, which includes their family hist ory. At that time, you may recommend for more screening tests (Ultrasound or MRI) as they might be us eful based on their risk. A negative radiographic report should not delay biopsy if a dominant or clinically suspicious mass is present. Up to ten percent of cancers are not identified on mammography. A negative report may reinforce clinical impression. Adenosis and dense breasts may obscure an underlying neoplasm. False positive reports average 6 to 10%. Patient will receive a letter notifying them of these results.
== END ==
PROVIDERS: PCP Nurse Practitioner Family; Visit Provider Nurse Practitioner Family
DX: Z12.39 Encounter for other screening for malignant neoplasm of breast (principal)
CPT/HCPCS: 77063; 77067

== ENCOUNTER 2024-05-05 16:21 | Outpatient (REF) | payer MEDICAID, SELFPAY ==
--- NOTE | 2024-05-05 15:50 | PAPFT_PTH ---
PATIENT: Stefano Felton LOC: EDIN U#:[id number] AGE/SX: 43/F ROOM: RE05/05/[address]: Eda Salmon NP : 1980 BED: DIS: 05/05/2024 SPEC #: [id number] RECD: 05/05/24 17:43 STATUS: BRIT RESarah #: [id number] DANA: 05/05/24 15:[address]: Viky URBAN,Eda DEPT: [facility] Cytology RECD BY: Bee Cali ENTERED: 05/05/24 17:43 SP TYPE: PAPFT OTHR DR: Gayathri Gracia, COMPUTER OPERATIONS TECHNICIAN Tissues: 1 - CX/ENDOCX FOR PAP SMEARS Procedures: PAP THIN PREP/UVM Screening HPV DNA PROBE Comments: [id number] (HPV 16 & 18/45)
== END 2024-05-05 16:22 | disposition home or self-care (01) ==
LOC: LBN 16:21
PROVIDERS: PCP Nurse Practitioner Family; Visit Provider Nurse Practitioner Women's Health
DX: Z01.419 Encounter for gynecological examination (general) (routine) without abnormal findings (principal); Z12.4 Encounter for screening for malignant neoplasm of cervix
CPT/HCPCS: 88142; 87624

== ENCOUNTER 2024-11-22 14:27 | Emergency (ER) | payer MEDICAID, SELFPAY ==
[2024-11-22 14:33] VITALS: BP 150/79; PULSE 112; RESP 14; TEMP 37; O2SAT 98
[2024-11-22 14:34] VITALS: BP 150/79; PULSE 109; O2SAT 98
[2024-11-22 14:35] VITALS: PULSE 110; O2SAT 98
[2024-11-22 14:46] VITALS: PULSE 110; O2SAT 97
[2024-11-22 14:50] VITALS: PULSE 108; O2SAT 94
[2024-11-22 14:59] VITALS: PULSE 104; RESP 16; O2SAT 98
--- NOTE | 2024-11-22 15:14 | ED.GENADUL_ITS ---
Discharge Plan Disposition Patient Disposition: Home Condition: Stable Discharge Details Clinical Impression: Influenza Primary Care Provider: Gayathri Gracia ED Provider: Kathi Hankins Home Meds and New Rx's Prescriptions: New promethazine 6.25 mg/5 mL syrup 12.5 mg PO Q6H PRN (Reason: cough) Qty: 120 0RF benzonatate 100 mg capsule 100 mg PO TID PRN (Reason: cough) Qty: 30 0RF ondansetron 4 mg tablet,disintegrating 4 mg PO Q6H PRN (Reason: nausea and vomiting) Qty: 30 0RF oseltamivir [Tamiflu] 75 mg capsule 75 mg PO BID 5 Days Qty: 10 0RF No Action Ozempic 0.25 mg or 0.5 mg (2 mg/3 mL) pen injector 0.25 mg subcut QWEEK Rx Instructions: for 4 weeks multivitamin [Multi-Day] 1 EACH tablet 1 ea PO DAILY Discharge Instructions Instructions: Flu, Adult ED Additional Instructions: You tested positive for the flu at home and you are within the window to start Tamiflu and a Prescription has been sent to the pharmacy Tamiflu side effects can include significant GI upset so additional Zofran medication was also sent to the pharmacy Your lung sounds and oxygen levels are normal but because you are smoker you are at high risk for developing pneumonia. If your cough, mucus or fever worsens, please return for reevaluation as you may need a chest x-ray at that time Cough medication has been sent to the pharmacy Make sure to stay hydrated, take Motrin and Tylenol as needed for fever and bodyaches HPI General Date/Time Provider Initiated Documentation: 11/22/24 14:36 . Limitations to Documentation: no limitations . Information obtained by: patient . HPI Narrative: 43-year-old female with past medical history of obesity, prediabetes, tobacco abuse presents for evaluation after testing positive for influenza at home today. She reports her symptoms started yesterday. She was highly suspicious that she had the flu because her niece tested positive last week. She reports her symptoms include body aches, headache, sore throat runny nose and a nonproductive cough. She denies any shortness of breath. She has not had any vomiting or diarrhea. She was hoping to get a prescription for Tamiflu today. Related Data Home Medications ?Medication ?Instructions ?Recorded ?Confirmed multivitamin (Multi-Day tablet) 1 ea PO DAILY 11/17/12 11/22/24 semaglutide 0.25 mg or 0.5 mg (2 0.25 mg subcut QWEEK 05/05/24 11/22/24 mg/3 mL) subcutaneous pen injector (Ozempic) benzonatate 100 mg capsule 100 mg PO TID PRN cough #30 caps 11/22/24 ondansetron 4 mg disintegrating 4 mg PO Q6H PRN nausea and 11/22/24 tablet vomiting #30 tabs oseltamivir 75 mg capsule (Tamiflu) 75 mg PO BID 5 days #10 caps 11/22/24 promethazine 6.25 mg/5 mL oral 12.5 mg (10 mL) PO Q6H PRN cough 11/22/24 syrup #120 mL Previous Rx's ?Medication ?Instructions ?Recorded benzonatate 100 mg capsule 100 mg PO TID PRN cough #30 caps 11/22/24 ondansetron 4 mg disintegrating 4 mg PO Q6H PRN nausea and 11/22/24 tablet vomiting #30 tabs oseltamivir 75 mg capsule (Tamiflu) 75 mg PO BID 5 days #10 caps 11/22/24 promethazine 6.25 mg/5 mL oral 12.5 mg (10 mL) PO Q6H PRN cough 11/22/24 syrup #120 mL Allergies Allergy/AdvReac Type Severity Reaction Status Date / Time amoxicillin Allergy Intermediate Skin Rash Verified 11/22/24 14:39 dulaglutide AdvReac Nausea Verified 11/22/24 14:39 General Stated Complaint: RespSymp SANTINO: 4 Exam Narrative Exam Narrative: Review of Systems: All systems reviewed & are unremarkable except as noted in HPI and below Well-developed, no acute distress NCAT PERRL, normal conjunctiva Mild posterior oropharynx with erythema, no exudates, shotty adenopathy Slight tachycardia improved to 99 on my examination, no murmur Unlabored respiratory effort, no hypoxia, tachypnea, clear breath sounds bilaterally Nondistended abdomen Course Vital Signs Vital signs: Vital Signs Temperature 37.0 C 11/22/24 14:33 Pulse 112 H 11/22/24 14:33 Respiratory Rate 14 11/22/24 14:33 Blood Pressure 150/79 H 11/22/24 14:33 Pulse Oximetry 98 03/09/25 14:33 Temperature 37.0 C 11/22/24 14:33 Pulse 104 H 11/22/24 14:59 Pulse Rhythm Regular 11/22/24 14:59 Pulse Strength Normal 11/22/24 14:59 Respiratory Rate 16 11/22/24 14:59 Respiratory Effort Normal, Non-Labored 11/22/24 14:59 Respiratory Depth Normal 11/22/24 14:59 Blood Pressure 150/79 H 11/22/24 14:34 Blood Pressure Mean 101 11/22/24 14:34 Blood Pressure Position Sitting 11/22/24 14:33 Pulse Oximetry 98 11/22/24 14:59 Oxygen Delivery Method Room Air 11/22/24 14:59 Oxygen Flow Rate 0 11/22/24 14:59 Pain Level 6 11/22/24 14:33 Medical Decision Making Emergent evaluation after positive influenza testing. Patient is well-appearing and hemodynamically stable. I do not suspect pneumonia at this time and there are no clinical signs of dehydration. Given her timing and positive test at home we will send prescription for Tamiflu. Discussed the side effects. Discussed the importance of supportive care at home and the importance of hy dration. Additional nausea medication as well as cough medication was sent to the pharmacy. Return precautions advised. Follow-up with PCP as needed. Quality:SDOH Health Related Social Needs: No Data to Display PFSH All Active Problems (Updated 11/22/24 @ 14:53 by Kathi Hankins MD) Influenza (Acute) Hyperlipidemia (Chronic) Obesity (Chronic) Medical History Prediabetes Abnormal uterine bleeding (AUB) 07/2019. Nl TSH. EMBx: benign. Rx with Mirena IUD Surgical History S/P breast augmentation S/P carpal tunnel release (08/01/18) Bilateral Family History Mother No problems noted. Father No problems noted. Brother No problems noted. Son No problems noted. Daughter No problems noted. Maternal Grandfather , age 76 No problems noted. Paternal Grandfather , age 80 No problems noted. Maternal Grandmother , 93 No problems noted. Paternal Grandmother No problems noted. Sister , 9 Brain tumor Social History Smoking/Tobacco Use Status: Current-Occasional Tobacco Type: cigarettes Second Hand Exposure: No Smoking risk assessment performed?: Yes Alcohol Intake: current Alcohol Intake frequency: holidays/special occasions only Drug use: Never Substance use type: does not use Adopted: No Caregiver/Support person: No Household members: spouse and children Housing: house Number of Children: 2 Communication Needs: None Education Level: high school Do you need help understanding health information?: Never Pets and animals: Yes Pets and animals: dog(s) Sexually active: Yes Do you think of yourself as: straight/heterosexual Current gender identity: female What is your relationship status?: How often do you talk on the phone with friends or family?: three or more times per week How often do you get together with friends or relatives?: three or more times per week How often do you attend faith or judaism services?: decline to answer Do you belong to any clubs or organized social groups?: no Panel score (0-1 are the most socially isolated patients): 2 What type of physical activity do you participate in: walking Duration: 15-30 minutes/day Frequency: daily Any/Baptism: None Seatbelt use: always Firearms in home: Yes Do you feel safe at home: Yes Do you feel safe in your relationship?: Yes Victim of physical abuse: No Victim of emotional abuse: No Victim of sexual abuse: No Would you like helpful sources: No Female Reproductive History Menstrual control method: other (partner with vasectomy) History History 2 Para 2 Hx # Term Pregnancies Multiple births Hx # Pregnancies Ectopic pregnancies AB induced Hx Number of Living Children 2 AB spontaneous
== END 2024-11-22 15:09 | disposition home or self-care (01) ==
LOC: ER 15:05
PROVIDERS: Emergency Provider Emergency Medicine; PCP Nurse Practitioner Family
DX: J11.1 Influenza due to unidentified influenza virus with other respiratory manifestations (principal); F17.210 Nicotine dependence, cigarettes, uncomplicated
CPT/HCPCS: 99283

== ENCOUNTER 2025-01-06 03:31 | Outpatient (CLI) | payer MEDICAID, SELFPAY ==
[2025-01-06 11:36] LABS: BUN 18 mg/dL (7-18); Calcium 9.4 mg/dL (8.5-10.1); Calculated LDL 164 mg/dL (<100); Chloride 107 mmol/L (98-107); Cholesterol 253 mg/dL (<200); Estimated GFR 70.36 (mL/min/1.73m2); Glucose 91 mg/dL (74-106); HDL Cholesterol 67 mg/dL (>or=50); Potassium 4.4 mmol/L (3.5-5.1); Sodium 141 mmol/L (136-145); Triglyceride 114 mg/dL (<150)
[2025-01-06 11:43] LABS: Hemoglobin A1C 5.5 % (<5.7)
[2025-01-07 09:58] LABS: Hep B Surface Ab Negative (See Note); Hepatitis B Core Antibody Negative (Negative); Hepatitis B Surface Antigen Negative (Negative)
[2025-01-07 10:05] LABS: Hepatitis C Ab w Rflx HCV PCR Negative (Negative)
[2025-01-07 15:01] LABS: HIV-1/2 Ag & Ab Screen Negative (Negative)
== END 2025-01-06 03:32 | disposition home or self-care (01) ==
LOC: LOS 03:31
PROVIDERS: PCP Nurse Practitioner Family; Visit Provider Nurse Practitioner Family
DX: Z11.59 Encounter for screening for other viral diseases (principal); E78.5 Hyperlipidemia, unspecified; Z11.4 Encounter for screening for human immunodeficiency virus [HIV]
CPT/HCPCS: 36415; 80048; 80061; 86704; 86706; 86803; 87340; 87389; 83036

== ENCOUNTER 2025-03-15 01:28 | Outpatient (CLI) | payer OTHER, SELFPAY ==
--- NOTE | 2025-03-15 07:45 | DI.MAMMO_ITS ---
Exam(s) MG MAMMO SCREENING 60 MIN DUR EXAM: MG MAMMO SCREENING 60 MIN DUR CLINICAL HISTORY: breast cancer screening,BREAST IMPLANTS,Z12.39. TECHNIQUE: Bilateral full field digital CC and MLO mammographic images with and without implant displacement were obtained with 3D tomosynthesis and utilizing computer aided detection (CAD). COMPARISON: 2020 through 2023 FINDINGS: Bilateral full field digital CC and MLO mammographic images with and without implant displacement were obtained with 3D tomosynthesis and utilizing computer aided detection (CAD). Masses/Architectural Distortion: None seen. Microcalcifications: No suspicious pleomorphic-type microcalcifications are seen. Skin thickening/Nipple Retraction: None. Implants: The bilateral saline appear intact. Impression: 1. No significant interval change with no specific features of malignancy noted. 2. Unless there is more urgent need, screening mammography is recommended, as per [employer] guidelines. BI-RADS Category 1 - Negative Breast Density - Category B - There are scattered areas of fibroglandular density. Breast density Category C or D implies that the patient has dense breast tissue. Dense breast tissue can make it harder to find cancer on a mammogram. Dense breast tissue is also associated with an increased risk of breast cancer. This information about the result of the mammogram report was provided to the patient to raise their awareness. Use this report when you speak with the patient about their risks for breast cancer, which includes their family history. At that time, you may recommend additional screening tests (Ultrasound or MRI) as these tests may add significant information. A negative radiographic report should not delay biopsy if a dominant or clinically suspicious mass is present. Up to ten percent of cancers are not identified on mammography. A negative report may reinforce clinical impression. Adenosis and dense breasts may obscure an underlying neoplasm. False positive reports average 6 to 10%. Patient will receive a letter notifying them of these results.
== END 2025-03-15 01:48 ==
LOC: DI 01:28
PROVIDERS: PCP Nurse Practitioner Family; Visit Provider Nurse Practitioner Family
DX: Z12.31 Encounter for screening mammogram for malignant neoplasm of breast (principal); R92.323 Mammographic fibroglandular density, bilateral breasts
CPT/HCPCS: 77063; 77067

== ENCOUNTER 2025-04-06 11:56 | Outpatient (REF) | payer OTHER, SELFPAY ==
--- NOTE | 2025-04-06 11:45 | PAPFT_PTH ---
PATIENT: Stefano Felton LOC: EDIN U#:[id number] AGE/SX: 44/F ROOM: RE04/06/[address]: Eda Salmon NP : 1980 BED: DIS: 04/06/2025 SPEC #: [id number] RECD: 04/06/25 13:09 STATUS: BRIT LUNA #: [id number] DANA: 04/06/25 11:[address]: Viky URBAN,Eda DEPT: [facility] Cytology RECD BY: Bee Cali ENTERED: 04/06/25 13:09 SP TYPE: PAPFT OTHR DR: Gayathri Gracia, EMBEDDED SOFTWARE ENGINEER Tissues: 1 - CX/ENDOCX FOR PAP SMEARS Procedures: PAP THIN PREP/UVM Screening HPV DNA PROBE Comments: [id number] (HPV 16 & 18/45)
== END 2025-04-06 11:57 | disposition home or self-care (01) ==
LOC: LBN 11:56
PROVIDERS: PCP Nurse Practitioner Family; Visit Provider Nurse Practitioner Women's Health
DX: Z12.4 Encounter for screening for malignant neoplasm of cervix (principal)
CPT/HCPCS: 88142; 87624

== ENCOUNTER 2025-05-12 20:06 | Emergency (ER) | payer OTHER, SELFPAY ==
[2025-05-12 20:09] VITALS: BP 145/51; PULSE 93; RESP 16; TEMP 36.3; O2SAT 98
--- NOTE | 2025-05-12 20:30 | ED.GENADUL_ITS ---
Discharge Plan Disposition Patient Disposition: Home Condition: Good Discharge Details Clinical Impression: Chronic pain of right hip Primary Care Provider: Gayathri Gracia ED Provider: Brianne Light Home Meds and New Rx's Prescriptions: Continued multivitamin [Multi-Day] 1 EACH tablet 1 ea PO DAILY lisdexamfetamine 50 mg capsule 50 mg PO DAILY MDD 50 mg Qty: 28 0RF tirzepatide (weight loss) 10 mg/0.5 mL pen injector 10 mg subcut QWEEK Qty: 2 0RF cyclobenzaprine 10 mg tablet 10 mg PO HS PRN (Reason: muscle spasm) Qty: 10 0RF Discharge Instructions Additional Instructions: Please follow-up with your primary care provider and physical therapy as discussed. I recommend that you continue to do the exercises prescribed by your physical therapist. Use lidocaine patches, heat/ice (not over the patches), and Tylenol 650 mg every 8 hours with ibuprofen 600 mg every 8 hours for pain control. You are being prescribed a limited number of cyclobenzaprine tablets for muscle relaxer. Please be sure to avoid swimming, driving, or operating heavy machinery while you are taking this medication as may cause sleepiness. Return to emergency care if you develop new leg weakness, numbness, redness/swelling of your hip, fevers associated with hip pain, or if you are very worried you need to be rechecked again immediately Referrals: [facility] [Provider Group, Physical Therapy] Gayathri Gracia NP [Primary Care Provider, Medicine] Discharge Data Discharge Date/Time-TO BE ENTERED AT DEPARTURE: 05/12/25 21:51 HPI General Date/Time Provider Initiated Documentation: 05/12/25 20:10 . HPI Narrative: Stefano is a 44-year-old female who presents to the emergency department today for evaluation of chronic right hip pain. 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 Pain intensified in spring, currently unbearable, feels like dragging right leg due to discomfort in the anterior hip/hip flexor. Denies associated fever, chills, swelling, rashes, numbness, or tingling, leg weakness, saddle anesthesia/paresthesia, change in bowel or bladder function, abdominal pain. No history of trauma. Upcoming physical therapy appointment next week, has had sessions with needling providing some relief. Previous cortisone injection and prednisone course in 03/2025 provided temporary relief. Muscle relaxer taken last night without symptom relief. Denies significant past medical history other than elevated cholesterol, she is not currently taking any cholesterol medications. Related Data Home Medications ?Medication ?Instructions ?Recorded ?Confirmed multivitamin (Multi-Day tablet) 1 ea PO DAILY 11/17/12 05/12/25 lisdexamfetamine 50 mg capsule 50 mg PO DAILY #28 caps 04/14/25 05/12/25 tirzepatide (weight loss) 10 10 mg (0.5 mL) subcut QWE EK #2 mL 04/27/25 05/12/25 mg/0.5 mL subcutaneous pen injector cyclobenzaprine 10 mg tablet 10 mg PO HS PRN muscle sp asm #10 05/12/25 tabs Previous Rx's ?Medication ?Instructions ?Recorded lisdexamfetamine 50 mg capsule 50 mg PO DAILY #28 caps 04/14/25 tirzepatide (weight loss) 10 10 mg (0.5 mL) subcut QWE EK #2 mL 04/27/25 mg/0.5 mL subcutaneous pen injector cyclobenzaprine 10 mg tablet 10 mg PO HS PRN muscle sp asm #10 05/12/25 tabs Allergies Allergy/AdvReac Type Severity Reaction Status Date / Time amoxicillin Allergy Intermediate Skin Rash Verified 05/12/25 20:13 dulaglutide AdvReac Nausea Verified 05/12/25 20:13 General Stated Complaint: Orthopedic SANTINO: 4 Exam Narrative Exam Narrative: General Appearance: Normal. Patient is alert and oriented, no acute distress Vital signs: Within normal limits. Back, Musculoskeletal: 2+ patellar reflexes bilaterally. Pain in right hip flexor area upon flexion and external rotation. 5/5 muscle strength to lower extremities, sensation grossly intact. No pain upon palpation of hip and surrounding areas. No T-spine/L-spine/coccyx tenderness/step-off/deformity. Skin: Warm and dry, no rash. Psychiatric: Normal. Skin General skin exam: no rashes or lesions noted Trauma: no lacerations or abrasions Wounds: no wounds Course Vital Signs Vital signs: Vital Signs Temperature 36.3 C L 05/12/25 20:09 Pulse 93 H 05/12/25 20:09 Respiratory Rate 16 05/12/25 20:09 Blood Pressure 145/51 H 05/12/25 20:09 Pulse Oximetry 98 05/12/25 20:09 Temperature 36.3 C L 05/12/25 20:09 Pulse 93 H 05/12/25 20:09 Respiratory Rate 16 05/12/25 20:09 Blood Pressure 145/51 H 05/12/25 20:09 Pulse Oximetry 98 05/12/25 20:09 Pain Level 7 05/12/25 20:09 Medical Decision Making Chronic right hip pain associated with hip flexor pain, patient has noted exacerbation since spring activities. No significant recent change or new symptoms, says it has been aggravating her more in the last couple of days. Differential Diagnosis includes but is not limited to: Bony lesion, muscle strain, other soft tissue injury. No red flags concerning for neurovascular compromise, septic joint/infectious etiology, or other serious etiology requiring blood work or advanced imaging at this time. ED Course: - Toradol injection administered and p.o. Tylenol given -Lidocaine patch applied - X-ray ordered, no acute abnormality noted by myself or radiologist. Stefano did report improvement in discomfort with pharmacologic management. Overall workup today reassuring. Clinical Impression: - Chronic right hip pain Disposition: - Discharge: Reviewed discharge instruction with patient, including symptomatic management, importance of follow-up with PCP/PT, and red flags indicate need for return to emergency care. A limited number of Flexeril tablets prescribed. - Follow-Up: Physical therapy next week. Patient consented to the use of [facility] Imaging Data Radiologic Study: Radiologist's impression: Exam(s) XR HIP RT COMPLETE AP PELVIS EXAM: XR HIP RT COMPLETE AP PELVIS CLINICAL HISTORY: R hip flexor pain. TECHNIQUE: 2D digital imaging was performed of the right hip. Two images were obtained. AP pelvis and lateral right hip views were obtained. COMPARISON: No exams were available for comparison FINDINGS: BONES: No acute fracture is present. No bony destructive lesion is seen. JOINTS: No dislocation present. SOFT TISSUE: Normal. IMPRESSION: 1. Unremarkable radiographs of the right hip. Unremarkable radiographs of the pelvis. 2. The preliminary [facility] report was reviewed. Quality:SDOH Health Related Social Needs: Health related social needs daily activities PFSH All Active Problems (Updated 05/12/25 @ 21:34 by Brianne Enriquez) Chronic pain of right hip (Acute) Perimenopausal (Acute) ADHD (Acute) Hyperlipidemia (Chronic) Obesity (Chronic) Medical History Prediabetes Abnormal uterine bleeding (AUB) 07/2019. Nl TSH. EMBx: benign. Rx with Mirena IUD Surgical History S/P breast augmentation S/P carpal tunnel release (08/01/18) Bilateral Family History Mother No problems noted. Father No problems noted. Brother No problems noted. Son No problems noted. Daughter No problems noted. Maternal Grandfather , age 76 No problems noted. Paternal Grandfather , age 80 No problems noted. Maternal Grandmother , 93 No problems noted. Paternal Grandmother No problems noted. Sister , 9 Brain tumor Social History Smoking/Tobacco Use Status: Current-Occasional Tobacco Type: cigarettes Quit status: considering quitting Second Hand Exposure: No Smoking risk assessment performed?: Yes Alcohol Intake: former Drug use: Never Substance use type: does not use Adopted: No Caregiver/Support person: No Household members: spouse and children Housing: house Number of Children: 2 Communication Needs: None Education Level: high school Do you need help understanding health information?: Never Pets and animals: Yes Pets and animals: dog(s) Sexually active: Yes Do you think of yourself as: straight/heterosexual Current gender identity: female What is your relationship status?: How often do you talk on the phone with friends or family?: three or more times per week How often do you get together with friends or relatives?: three or more times per week How often do you attend episcopal or catholic services?: decline to answer Do you belong to any clubs or organized social groups?: no Panel score (0-1 are the most socially isolated patients): 2 What type of physical activity do you participate in: walking Duration: 15-30 minutes/day Frequency: daily Any/Gnosticist: None Seatbelt use: always Firearms in home: Yes Do you feel safe at home: Yes Do you feel safe in your relationship?: Yes Victim of physical abuse: No Victim of emotional abuse: No Victim of sexual abuse: No Would you like helpful sources: No Female Reproductive History Menstrual control method: other (partner with vasectomy) History History 2 Para 2 Hx # Term Pregnancies Multiple births Hx # Pregnancies Ectopic pregnancies AB induced Hx Number of Living Children 2 AB spontaneous
[2025-05-12] MEDS: Acetaminophen 500 MG TAB 1000 MG PO (21:01)
[2025-05-12] MEDS: Ketorolac 30 MG/ML VIAL IM (21:02)
[2025-05-12] MEDS: Lidocaine 5% Patch 1 PATCH TP (21:04)
--- NOTE | 2025-05-12 21:21 | DI.[facility]_ITS ---
PROCEDURE INFORMATION: Exam: XR Right Hip Exam date and time: 05/12/2025 9:15 PM Age: 44 years old Clinical indication: Other: R hip flexor pain TECHNIQUE: Imaging protocol: Radiologic exam of the right hip. Views: 2 or 3 views hip with pelvis when performed. COMPARISON: US PELVIS TRANSVAGINAL 08/03/2019 2:04 PM FINDINGS: Bones/joints: Unremarkable. No acute fracture. No suspicious bony lesions. Soft tissues: Unremarkable. Bowel gas pattern has a normal appearance. IMPRESSION: No acute findings. Dictated and Authenticated by: Yenni Mckeon MD. Orderin Ibis Decker MD
[2025-05-12] MEDS: Cyclobenzaprine 10 MG TAB PO (21:47)
== END 2025-05-12 21:51 | disposition home or self-care (01) ==
PROVIDERS: Emergency Provider Nurse Practitioner Family; PCP Nurse Practitioner Family
DX: M25.551 Pain in right hip (principal)
CPT/HCPCS: 99284 ×2; 96372; 81025; 73502; J1885